=== PATIENT | female | born 1945 | race Caucasian/White ===

== ENCOUNTER → 2016-11-11 | Outpatient (CLI) | payer MEDICARE ==
[~2016-11-11] MED LIST: CALCIUM1 CAP PO; CAPTOPRIL50 MG PO; DICYCLOMINE HCL10 MG PO; IBUPROFEN IB200 MG PO; K-DUR 2020 MEQ PO; METOPROLOL SR25 MG PO; MIRTAZAPINE7.5 MG PO; NORCO 325 MG-51 TAB PO; PRILOSEC20 MG PO; TAMOXIFEN CITRA10 MG PO; VITAMIN D400 I1 PO; XANAX0.25 MG PO; ZOCOR20 MG PO; ZOCOR40 MG PO; ZOLOFT25 MG PO
== END | disposition home or self-care (01) ==
LOC: US 14:59
DX: M79.602 Pain in left arm (principal)

== ENCOUNTER → 2017-10-31 | Outpatient (CLI) | payer MEDICARE | END | disposition home or self-care (01) | LOC: CT 03:56 | DX: J44.9 Chronic obstructive pulmonary disease, unspecified (principal); I89.0 Lymphedema, not elsewhere classified; E78.00 Pure hypercholesterolemia, unspecified; D50.8 Other iron deficiency anemias; E55.9 Vitamin D deficiency, unspecified; R79.89 Other specified abnormal findings of blood chemistry; Z85.3 Personal history of malignant neoplasm of breast ==

== ENCOUNTER 2017-12-10 17:41 | Inpatient (IN) | payer MEDICARE ==
[~2017-12-10] VITALS: Ht 165.1 cm; Wt 60.4 kg
[2017-12-10 17:41] VITALS: BP 115/64
[2017-12-10 22:55] VITALS: BP 134/63
[2017-12-10 23:00] VITALS: BP 106/62
[2017-12-11] VITALS: BP 106/62
[2017-12-11 00:12] LABS: BASO % 0.2 % (0.0-1.0); EOS # 0.2 10*3/uL (0.0-0.4); EOS % 1.6 % (1.0-4.0); HEMATOCRIT 39.6 % (37.0-47.0); HEMOGLOBIN 12.7 g/dl (12.0-16.0); LYMPH # 1.7 10*3/uL (1.3-4.4); LYMPH % 13.9 % (27.0-41.0); MEAN CELL VOLUME 95.4 fl (81.0-99.0); MEAN CORPUSCULAR HGB 30.6 pg (27.0-31.0); MEAN CORPUSCULAR HGB CONC 32.1 g/dl (33.0-37.0); MEAN PLATELET VOLUME 9.9 fl (9.6-12.3); NEUT # 9.2 10*3/uL (2.3-7.9); NEUT % 75.9 % (47.0-73.0); PLATELET COUNT AUTOMATED 184 10*3/uL (130-400); RED BLOOD COUNT 4.15 10*6/uL (4.10-5.10); RED CELL DISTRI WIDTH 13.9 % (0-14.5); WHITE BLOOD COUNT 12.1 10*3/uL (4.8-10.8)
[2017-12-11 00:22] LABS: ACT PARTIAL THROMBO TIME 20.9 SECONDS (20.8-31.5)
[2017-12-11 00:27] LABS: ALBUMIN 2.9 gm/dl (3.1-4.5); CREATININE 1.45 mg/dL (0.55-1.02); POTASSIUM 4.8 mmol/L (3.5-5.1); TOTAL PROTEIN 6.3 gm/dL (6.4-8.2)
[2017-12-11 07:25] LABS: BASO % 0.3 % (0.0-1.0); EOS # 0.2 10*3/uL (0.0-0.4); EOS % 1.9 % (1.0-4.0); HEMATOCRIT 38.9 % (37.0-47.0); HEMOGLOBIN 12.2 g/dl (12.0-16.0); LYMPH # 1.4 10*3/uL (1.3-4.4); LYMPH % 15.4 % (27.0-41.0); MEAN CELL VOLUME 96.5 fl (81.0-99.0); MEAN CORPUSCULAR HGB 30.3 pg (27.0-31.0); MEAN CORPUSCULAR HGB CONC 31.4 g/dl (33.0-37.0); MEAN PLATELET VOLUME 10.4 fl (9.6-12.3); MONO # 0.7 10*3/uL (0.1-1.0); MONO % 7.8 % (3.0-9.0); NEUT # 6.7 10*3/uL (2.3-7.9); NEUT % 74.2 % (47.0-73.0); PLATELET COUNT AUTOMATED 188 10*3/uL (130-400); RED BLOOD COUNT 4.03 10*6/uL (4.10-5.10); RED CELL DISTRI WIDTH 13.9 % (0-14.5); WHITE BLOOD COUNT 9.1 10*3/uL (4.8-10.8)
[2017-12-11 07:48] LABS: ALBUMIN 2.9 gm/dl (3.1-4.5); CREATININE 1.42 mg/dL (0.55-1.02); PHOSPHOROUS 3.2 mg/dL (2.5-4.9); POTASSIUM 4.5 mmol/L (3.5-5.1); TOTAL PROTEIN 5.9 gm/dL (6.4-8.2)
[2017-12-11 07:53] LABS: THYROID STIM HORMONE (HS) 1.02 uIU/ml (0.358-4.75)
[2017-12-11 07:59] LABS: ACT PARTIAL THROMBO TIME 21.4 SECONDS (20.8-31.5)
[2017-12-11 08:00] VITALS: BP 152/59
[2017-12-11 08:32] LABS: VITAMIN D, 25-HYDROXY 31.6 ng/mL (30-100)
[2017-12-11 12:00] VITALS: BP 143/64
[2017-12-11] MEDS ORDERED: PAXIL20 M1 PO (12:11)
[2017-12-11] MEDS ORDERED: SYMB160 INH (12:12)
[2017-12-11] MEDS ORDERED: LASIX20 MG PO (12:12)
[2017-12-11] MEDS ORDERED: POTASSIUM CHLOR8 ME1 PO (12:12)
[2017-12-11] MEDS ORDERED: TAMOXIFEN CITRA PO (12:13)
[2017-12-11] MEDS ORDERED: LOPRESSOR25 MG PO (12:14)
[2017-12-11 16:00] VITALS: BP 116/61
[2017-12-11 20:00] VITALS: BP 127/60
[2017-12-12] VITALS: BP 130/80
[2017-12-12 06:46] LABS: BASO % 0.4 % (0.0-1.0); EOS # 0.2 10*3/uL (0.0-0.4); EOS % 2.6 % (1.0-4.0); HEMATOCRIT 38.3 % (37.0-47.0); HEMOGLOBIN 11.7 g/dl (12.0-16.0); LYMPH # 1.4 10*3/uL (1.3-4.4); LYMPH % 16.2 % (27.0-41.0); MEAN CELL VOLUME 97.7 fl (81.0-99.0); MEAN CORPUSCULAR HGB 29.8 pg (27.0-31.0); MEAN CORPUSCULAR HGB CONC 30.5 g/dl (33.0-37.0); MEAN PLATELET VOLUME 10.5 fl (9.6-12.3); MONO # 0.8 10*3/uL (0.1-1.0); MONO % 9.2 % (3.0-9.0); NEUT % 71.2 % (47.0-73.0); PLATELET COUNT AUTOMATED 159 10*3/uL (130-400); RED BLOOD COUNT 3.92 10*6/uL (4.10-5.10); WHITE BLOOD COUNT 8.4 10*3/uL (4.8-10.8)
[2017-12-12 06:57] LABS: CREATININE 1.46 mg/dL (0.55-1.02); POTASSIUM 4.7 mmol/L (3.5-5.1)
[2017-12-12 08:00] VITALS: BP 145/70
[2017-12-12] MEDS ORDERED: PRILOSEC20 M1 PO (12:06)
[2017-12-12 13:46] VITALS: BP 139/78
[2017-12-12 18:00] VITALS: BP 131/63
[2017-12-12 20:00] VITALS: BP 116/65
[2017-12-13] VITALS: BP 106/54
[2017-12-13 06:50] LABS: BASO % 0.1 % (0.0-1.0); EOS # 0.2 10*3/uL (0.0-0.4); EOS % 2.5 % (1.0-4.0); HEMATOCRIT 37.6 % (37.0-47.0); HEMOGLOBIN 11.6 g/dl (12.0-16.0); LYMPH # 0.8 10*3/uL (1.3-4.4); LYMPH % 9.5 % (27.0-41.0); MEAN CELL VOLUME 98.9 fl (81.0-99.0); MEAN CORPUSCULAR HGB 30.5 pg (27.0-31.0); MEAN CORPUSCULAR HGB CONC 30.9 g/dl (33.0-37.0); MEAN PLATELET VOLUME 10.7 fl (9.6-12.3); MONO # 0.7 10*3/uL (0.1-1.0); MONO % 7.6 % (3.0-9.0); NEUT % 79.8 % (47.0-73.0); PLATELET COUNT AUTOMATED 153 10*3/uL (130-400); RED CELL DISTRI WIDTH 13.8 % (0-14.5); WHITE BLOOD COUNT 8.8 10*3/uL (4.8-10.8)
[2017-12-13 07:26] LABS: CREATININE 1.32 mg/dL (0.55-1.02); POTASSIUM 4.4 mmol/L (3.5-5.1)
[2017-12-13 09:00] VITALS: BP 121/70
[2017-12-13 12:00] VITALS: BP 132/63
[2017-12-13 16:23] VITALS: BP 137/82
== END 2017-12-13 16:49 | disposition other institution (70) | DRG 536 ==
LOC: ED 17:41 → 5E 21:27 → EDHOLD 21:27 → 5E 21:48
PROVIDERS: Family Medicine; Internal Medicine; Internal Medicine Hospice and Palliative Medicine; Physician Assistant
DX: S32.454A Nondisplaced transverse fracture of right acetabulum, initial encounter for closed fracture (principal); E44.0 Moderate protein-calorie malnutrition; S32.591A Other specified fracture of right pubis, initial encounter for closed fracture; J43.9 Emphysema, unspecified; E78.00 Pure hypercholesterolemia, unspecified; K21.9 Gastro-esophageal reflux disease without esophagitis; M51.37 Other intervertebral disc degeneration, lumbosacral region; M81.0 Age-related osteoporosis without current pathological fracture; I25.10 Atherosclerotic heart disease of native coronary artery without angina pectoris; I89.0 Lymphedema, not elsewhere classified; I10 Essential (primary) hypertension; E55.9 Vitamin D deficiency, unspecified; W01.0XXA Fall on same level from slipping, tripping and stumbling without subsequent striking against object, initial encounter; F32.9 Major depressive disorder, single episode, unspecified; R73.9 Hyperglycemia, unspecified; Z95.828 Presence of other vascular implants and grafts; Z85.3 Personal history of malignant neoplasm of breast; Z91.041 Radiographic dye allergy status; Z79.899 Other long term (current) drug therapy; Z98.51 Tubal ligation status; Z90.12 Acquired absence of left breast and nipple; Z90.710 Acquired absence of both cervix and uterus; Z95.818 Presence of other cardiac implants and grafts; Z83.3 Family history of diabetes mellitus; Z83.6 Family history of other diseases of the respiratory system; Z80.1 Family history of malignant neoplasm of trachea, bronchus and lung; Y93.89 Activity, other specified; Y92.89 Other specified places as the place of occurrence of the external cause; Y99.8 Other external cause status

== ENCOUNTER → 2017-12-26 | Outpatient (CLI) | payer MEDICARE ==
[~2017-12-26] MED LIST changes: +LASIX20 MG PO; +LOPRESSOR25 MG PO; +PAXIL20 M1 PO; +POTASSIUM CHLOR8 ME1 PO; +PRILOSEC20 M1 PO; +SYMB160 INH; +TAMOXIFEN CITRA PO
== END | disposition home or self-care (01) ==
LOC: ORTHO 01:37
DX: Z47.89 Encounter for other orthopedic aftercare (principal); S32.491D Other specified fracture of right acetabulum, subsequent encounter for fracture with routine healing; M54.5 Low back pain; G89.29 Other chronic pain; X58.XXXD Exposure to other specified factors, subsequent encounter

== ENCOUNTER → 2018-01-21 | Outpatient (CLI) | payer MEDICARE ==
[~2018-01-21] MED LIST changes: +CALCIUM PO; +CEFEPIME2 GM IJ; +COLACE100 MG PO; +DUONEB 3 MG/3 ML3 M1 INH; +HEP-LOCK F100 UNIT/1 IV; +IMODIUM A-D2 M2 PO; +NYSTOP60 GM T; +REQUIP1 M1 PO; +RESOURCE 2.0 2237 ML PO; +TYLENOL325 M1 PO; +ZOFRAN4 MG PO
== END | disposition home or self-care (01) ==
LOC: ORTHO 02:51
DX: Z47.89 Encounter for other orthopedic aftercare (principal); M16.11 Unilateral primary osteoarthritis, right hip; S32.501D Unspecified fracture of right pubis, subsequent encounter for fracture with routine healing; X58.XXXD Exposure to other specified factors, subsequent encounter

== ENCOUNTER → 2018-01-23 | Outpatient (CLI) | payer MEDICARE ==
--- NOTE | ~2018-01-23 | SLPPN ---
[place], [place] BUSINESS PARTNER PROGRESS NOTE NAME: CHRIS RAMEY UNIT #: [id number] ROOM: DOCTOR: CLAUDIA RONQUILLO MD,CONSUELO Speech Language Pathology Treatment Note Page 1 1 of Patient Name: CHRIS RAMEY Date: 01/23/2018 04:11 PM : 1945 SOC Date: 01/23/2018 [facility]: [facility] Provider #: [id number] Treating Clinician: NIKOLAY Whitmore-BUSINESS PARTNER Referring Physician: CONSUELO RONQUILLO Onset Date Description Code Primary Diagnosis: 01/23/2018 A0000 NO DIAGNOSIS SENT TO THE [facility] Time In: 12:30 PM Time Out: 01:30 PM BUSINESS PARTNER Interventions and CPT Codes Consisted of: CPT Code Modifiers Minutes Units MOTION FLUOROSCOPY/SWALLOW 04521 60 1 Total Minutes: 60 Total Timed Minutes: 0 Total Untimed Minutes: 60 Total Units: 1 Total Timed Units: 0 Total Untimed Units: 1 01/23/2018 4:13:27 PM NIKOLAY Whitmore-BUSINESS PARTNER Date/Time State License #: [id number] CM:KALPANA [id number] IS THER[facility]Y [facility]
--- NOTE | ~2018-01-23 | SLPIE ---
[place], [place] DRESSAGE INSTRUCTOR INITIAL EVALUATION NAME: CHRIS RAMEY UNIT #: [id number] ROOM: DOCTOR: CONSUELO KANG FACP, MD Speech Language Pathology Initial Evaluation Page 1 1 of Patient Name: CHRIS RAMEY Date: 01/23/2018 04:10 PM : 1945 SOC Date: 01/23/2018 Provider: [facility] Provider #: [id number] Treating Clinician: NIKOLAY Whitmore-ANTONIA Referring Physician: CONSUELO RONQUILLO Patient Information Address: [address] [place] [address] Physician: CONSUELO RONQUILLO Physician #: City, State, Zip: [place], [place] [address] Occupation: Unknown # of Approved Visits: 0 Gender: Female 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 Please see VCV for details. Rehabilitation Information / History Clinical Findings Functional Goals Functional Limitation Reporting Swallowing G8996 - Swallowing functional limitation, current status at therapy episode outset and at reporting intervals Current Status: CI - At least 1 percent but less than 20 percent impaired, limited or restricted G8997 - Swallowing functional limitation, projected goal status, at therapy episode outset, at reporting intervals, and at discharge or to end reporting Goal Status: CI - At least 1 percent but less than 20 percent impaired, limited or restricted G8998 - Swallowing functional limitation, discharge status, at discharge from therapy or to end reporting Discharge Status: CI - At least 1 percent but less than 20 percent impaired, limited or restricted 01/23/2018 4:11:15 PM MATT Whitmore Date/Time [place], [place] DRESSAGE INSTRUCTOR INITIAL EVALUATION NAME: CHRIS RAMEY UNIT #: [id number] ROOM: DOCTOR: CONSUELO KANG FACP, MD [facility] License #: [id number] CM:NILO 12 12 IS THERAPY [facility]
--- NOTE | ~2018-01-23 | SLPPOC ---
[place], [place] TERRAZZO GRINDER PLAN OF CARE NAME: CHRIS RAMEY UNIT #: [id number] ROOM: DOCTOR: CONSUELO KANG FACP, MD Speech Language Pathology Plan of Care Page 1 1 (Initial Evaluation) of Patient Name: CHRIS RAMEY Date: 01/23/2018 04:10 PM : 1945 SOC Date: 01/23/2018 Provider: [facility] Provider #: [id number] Treating Clinician: NIKOLAY Whitmore-TERRAZZO GRINDER Referring Physician: CONSUELO RONQUILLO Medicare #: 1 [id number] Visits From SOC: Onset Date Description Code Primary Diagnosis: 01/23/2018 A0000 NO DIAGNOSIS SENT TO THE [facility] Subjective Comments: Initial evaluation created to initiate the electronic medical record. Please see Front Row for details. Initial Level Goals Functional Limitation Reporting Swallowing G8996 - Swallowing functional limitation, current status at therapy episode outset and at reporting intervals Current Status: CI - At least 1 percent but less than 20 percent impaired, limited or restricted G8997 - Swallowing functional limitation, projected goal status, at therapy episode outset, at reporting intervals, and at discharge or to end reporting Goal Status: CI - At least 1 percent but less than 20 percent impaired, limited or restricted G8998 - Swallowing functional limitation, discharge status, at discharge from therapy or to end reporting Discharge Status: CI - At least 1 percent but less than 20 percent impaired, limited or restricted 01/23/2018 4:11:15 PM CONSUELO RONQUILLO Date/Time MATT Whitmore Date I certify the need for these services furnished under this plan of treatment while under my care. State License #: [id number] CM:SLPPO [id number] IS THERAPY [facility]
--- NOTE | ~2018-01-23 | PROC NOTE ---
[place], [place] PROCEDURE NOTE NAME: CHRIS RAMEY UNIT #: [id number] ROOM: DOCTOR: CLEMENTE LUNDY BIRTHDATE: [birth year] DOS: 01/23/2018 MODIFIED BARIUM SWALLOW ORDERING PHYSICIAN: Dr. Ellis. RADIOLOGIST: Dr. Lockwood. BACKGROUND INFORMATION: The patient is a 72-year-old female who was seen for modified barium swallow. This test was ordered to view the anatomy and physiology of the swallowing mechanism. This patient has been experiencing globus with meals, causing her to spit up food toward the end of the meal. Medical history is significant for GERD, history of breast cancer and malnutrition. She reported suffering a recent hip injury due to a fall at home and has been in a rehab facility. She is receiving a mechanical soft diet with chopped meats and thin liquids. She was alert, able to provide case history information and follow all commands during today's assessment. Oral peripheral examination revealed presence of upper denture, which patient reported as ill-fitting. Lingual, labial and buccal skills were within normal limits in terms of strength, range of motion and coordination. The patient was able to volitionally cough and swallow. METHODS AND MATERIALS USED FOR THE EXAM: The patient was positioned in the lateral plane and the exam was viewed under fluoroscopy. The patient was presented with a variety of consistencies to assess swallowing skills including applesauce mixed with barium presented in half teaspoon amounts, barium-coated cookie and bread taken in bite size pieces and thin liquid barium taken by cup. ORAL PHASE: The patient achieved adequate labial seal around cup and spoon with no anterior loss. Bolus formation and transit were adequate. Mastication of barium coated bread was difficult. Piecemeal swallow with this consistency was observed and the patient finally stated that she could not fully chew it and asked to spit it out. Tongue to palate contact was adequate with all consistencies. Tongue retraction was adequate with all consistencies. Velar functioning was within normal limits with no nasal regurgitation. PHARYNGEAL PHASE: Unremarkable. ESOPHAGEAL PHASE: This phase of the swallow was not formally assessed during this exam. IMPRESSIONS AND RECOMMENDATIONS: Based upon assessment results, this patient exhibited swallowing skills that are essentially within functional limits. Some difficulty masticating barium coated bread was observed. This could have been due to her ill-fitting upper denture and/or the dry gummy consistency of the bread. It is recommended the patient remain on present diet and follow safe swallow precautions such as small bites and sips, chewing thoroughly alternating liquids and solids and moistening foods as appropriate to make them easier to chew and swallow. The patient verbalized understanding of information provided. The patient's spouse was also educated and a written copy of today's results [place], [place] PROCEDURE NOTE NAME: CHRIS RAMEY UNIT #: [id number] ROOM: DOCTOR: CLEMENTE LUNDY BIRTHDATE: [birth year] were provided to senior care staff for their education as well. Thank you very much for this referral. Should you have any questions regarding this patient, please contact the speech pathologist at [phone]. CLEMENTE LUNDY CM:PROCNOTE:PROCEDURE NOTE [id number] CLEMENTE LUNDY
== END | disposition home or self-care (01) ==
LOC: RAD 12:25 → RAD/SH 12:25
DX: R13.10 Dysphagia, unspecified (principal)

== ENCOUNTER 2018-02-03 11:50 | Inpatient (IN) | payer MEDICARE ==
[~2018-02-03] VITALS: Ht 147.3 cm; Wt 58.3 kg
[2018-02-03] VITALS (8 sets, daily range): BP systolic 110–124; BP diastolic 48–78
--- NOTE | ~2018-02-03 | PR ---
[place], [place] PROGRESS NOTE NAME: CHRIS RAMEY UNIT #: [id number] ROOM: [facility] DOCTOR: LENNIE ELIAS MD BIRTHDATE: [birth year] DOS: 02/06/2018 SUBJECTIVE: She was noted comfortable at this time without any acute distress. She has not reported symptoms of chest pain or cough. Shortness breath was noted stable at the present time. noted edema of the upper and lower extremity. There were symptoms of hemoptysis. OBJECTIVE: VITAL SIGNS: For the patient which are recorded showed the blood pressure was recorded at 111/60, respiratory rate 16, heart rate 108, blood pressure 100.3, sinus tachycardia noted with PVCs on the court recording monitor. HEENT: Showed no acute change. NECK: Supple. CARDIOVASCULAR: S1, S2 audible. LUNGS: Moderate decreased breath sounds were noted in the lungs bilaterally. ABDOMEN: Soft, nontender. EXTREMITIES: Shows edema. LABORATORY DATA: CBC today: WBC count was recorded as 9.8, hemoglobin 7.7, hematocrit 25.6, platelet count was normal. CMP this morning, BUN 29, creatinine 1.72. Glucose 103. IMPRESSION: 1. The patient with resolving acute kidney injury gradually with peripheral edema still noted. 2. The patient with anemia was also noted. 3. Acute hypoxic respiratory failure, chronic hypercapnia. 4. Acute bacterial pneumonia. PLAN OF MANAGEMENT: No changes in the plan of care at this time. Continue the patient's current plan of care as in progress. Usual care, other supportive plan of management and therapies. The patient was planned for blood transfusion today. No other change in the treatment, pulmonary standpoint, will be necessary. Obtain a chest x-ray of the patient in the morning to reassess the progression of the current pneumonia in the left lower lobe. [place], [place] PROGRESS NOTE NAME: CHRIS RAMEY UNIT #: [id number] ROOM: [facility] DOCTOR: LENNIE ELIAS MD BIRTHDATE: [birth year] LENNIE MCDUFFIE MD CM:PNTRANS [id number] LENNIE ARNDT MD 02/06/181951 interface
--- NOTE | ~2018-02-03 | EKG ---
[place], [place] ELECTROCARDIOGRAM REPORT NAME: CHRIS RAMEY UNIT #: [id number] ROOM: [facility] DOCTOR: RETA ARNDT MD,LENNIE BIRTHDATE: [birth year] DOS: 02/03/2018 Electrocardiogram was done on 02/03/2018 at 12:53 p.m. 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 LENNIE MCDUFFIE MD CM:EKGRPT:ELECTROCARDIOGRAM REPORT [id number] LENNIE ARNDT MD
--- NOTE | ~2018-02-03 | PR ---
[place], [place] PROGRESS NOTE NAME: [id number] UNIT #: [id number] ROOM: [facility] DOCTOR: DEE HARLEY,NOVEMBER BIRTHDATE: [birth year] DOS: 02/07/2018 SUBJECTIVE: The patient is a 72-year-old female who is being followed for pneumonia. She was admitted from an ECF. She is currently on cefepime. She had a CT of the chest on 02/03/2018 that showed right upper lobe infiltrate. She has not had a sputum culture able to be obtained. Blood cultures were all sterile. Urine culture is sterile. MRSA screen is negative. She is having significant respiratory distress. She ran a fever overnight of 102.7 about 4:00 a.m. that has resolved and not recurred since. She is hypotensive, having respiratory distress. She has had vomiting this morning; therefore, the BiPAP is being held. She is refusing intubation, though she is a full code. No diarrhea. Has had mushy stools. She had an EGD that showed gastritis. No rashes. Significant upper body swelling. LABORATORY DATA: WBC is 11.3, platelets 199. BUN 25, creatinine 1.4, AST 37, ALT 22, albumin 2.5. Cultures as reviewed above. PHYSICAL EXAMINATION: VITAL SIGNS: Temperature 97.8, pulse 142, respirations 28, BP 98/60. GENERAL: A 72-year-old female in moderate respiratory distress, on O2 via mask. HEENT: Normocephalic, tacky mucous membranes. Face and neck appeared to be puffy. Right neck with triple lumen catheter in place, ecchymosis across the anterior neck. LUNGS: With crackles bilaterally. Respirations labored. HEART: Regular rhythm, tachycardic, unable to appreciate any murmurs, though difficult to auscultate. ABDOMEN: Soft, nondistended, positive bowel sounds. EXTREMITIES: Mild lower extremity edema plus bilateral upper extremity edema, +3 edema with weeping, especially of the left arm. Upper extremities are ecchymotic. No signs of cellulitis. SKIN: Otherwise, warm, dry, free of rashes. Review of systems rather limited given the patient's distress, minimal verbal response. ASSESSMENT: Healthcare-associated pneumonia. PLAN: She is currently on cefepime, which is to be continued. She is awaiting transfer to a tertiary care center, which is to be happening imminently. JAMES PRICE CNP [place], [place] PROGRESS NOTE NAME: CHRIS RAMEY UNIT #: [id number] ROOM: [facility] DOCTOR: DEE HARLEY,NOVEMBER BIRTHDATE: [birth year] ART AVENDANO MD CM:PNTRANS [id number] JAMES PRICE CNP 02/08/18 1210 interface
--- NOTE | ~2018-02-03 | CON ---
[place], [place] REPORT OF CONSULTATION NAME: CHRIS RAMEY UNIT #: [id number] ROOM: [facility] DOCTOR: VICKIE GROSSMAN MD BIRTHDATE: [birth year] DOS: 02/06/2018 NEPHROLOGY CONSULTATION REASON FOR CONSULTATION: Acute kidney injury. REQUESTING PHYSICIAN: Dr. Contreras. HISTORY OF PRESENT ILLNESS: The patient is a pleasant 72-year-old woman with the unfortunate history of congestive heart failure, history of breast cancer, status post mastectomy and chronic left arm lymphedema, history of a MediPort placement in the right that was noted to have some CKD. She was following with Dr. Owusu of our office in the past, was due to get an ultrasound later this month. Her baseline creatinine has been as low as 1-1.1 going back few years and last year, cut down to as low as 1.2, but has generally been in the mid ones beside that. She does have a tendency to have chronic venous insufficiency in the lower extremities as well as upper extremities. Tend to be edematous. Her daughter reports that her lower extremities were significantly edematous by the time she was admitted to the hospital, which has improved. She was found to have a large burden of DVT in her left lower extremity, initially placed on heparin and eventually switched over to Xarelto. However, her hemoglobin began to fall from the 11s to the 9s and this morning down to 7s. Xarelto was held and GI was consulted and she is in the preoperative area for possible EGD this morning. I was notified yesterday of the consult. She had low-grade temperatures. She had blood pressures in the systolics of 90s, and she was tachycardic. I recommended that we do at least a bolus of albumin given the third spacing that the nurse was describing to me. Gave her 500 mL of 5% albumin and checked urine chemistries which indicated a prerenal process as expected. She was hypernatremic, was started on normal saline yesterday as well. Her creatinine is improving from 2.2-2.3 ranging down to the 1.9 range. Given the current hemodynamics continue to show tachycardia and low-grade temperatures and tachypnea with more stable blood pressures at least, no pressor requirements have been required so far. She is being treated for possible pneumonia as well as the respiratory failure that she presented with. A CT of the chest was done, showed little effusions, but questionable scattered pneumonia, which I am suspicious now maybe clots. No contrast was given because of her renal insufficiency on arrival as well. At this point, 1 packed red blood cell unit was given because of the blood loss and the unstable nature of the patient. There is no reported history of hypercoagulable state, other than a history of cancer that she was previously treated for. She does not report any significant anorexia, nausea, vomiting, but she does have poor p.o. intake according to family. She has aches and pains all over. She is not able to characterize these or specifically localize any specific ones that are hurting at this time. She is noted to have some seeping of her upper and lower extremities, mostly right upper extremity to me today. Her left upper extremity is wrapped in a compression sleeve as is her lower extremities with SCARLETT stockings. SCD is in place on the right lower extremity, but not on the left because of the clot. REVIEW OF SYSTEMS: As per the HPI, otherwise all systems attempted and [place], [place] REPORT OF CONSULTATION NAME: CHRIS RAMEY UNIT #: [id number] ROOM: [facility] DOCTOR: VICKIE GROSSMAN MD BIRTHDATE: [birth year] negative. PAST MEDICAL HISTORY, FAMILY HISTORY AND SOCIAL HISTORY: All reviewed and unchanged from the admitting H and P. PHYSICAL EXAMINATION: VITAL SIGNS: Blood pressure is 114/68, respiratory rate 28, pulse 112, temperature 100.6%. GENERAL: Chronically ill, elderly, age appropriate woman lying in bed with the head of the bed raised. HEENT: Oral mucous membranes are dry, dry chapped lips are noted. Extraocular muscles are intact. Sclerae are anicteric. Oropharynx is otherwise without thrush or ulcers. Hearing is grossly intact. External ears and nose are intact. NECK: I cannot appreciate JVD. She has a thick neck. EXTREMITIES: She has a MediPort on the right, compression sleeve on her left with some lymphedema noted. She also has some edema of the lower extremities, but not as much as the third spacing noted on the upper extremities. Very poor psychomotor slowing and deconditioning grossly is noted. She had a fall and was just recently admitted and sent to residential about 8 weeks ago. LUNGS: Decreased breath sounds, scattered rhonchi. No significant wheeze. CARDIOVASCULAR: Tachycardic rate. No audible rub, no lift or heave. ABDOMEN: Obese, soft, nontender, without rebound, guarding or hepatosplenomegaly that I can appreciate. SKIN: Without diffuse rashes. Scattered ecchymoses are noted, some seeping as mentioned above. She has a right IJ tunneled triple lumen catheter as well. NEUROLOGIC: Gross motor function is deconditioned, but intact in all 4 extremities. Gross sensation is intact as well. Insight and judgment, relatively preserved. Remote memory is intact. LABORATORIES AND DIAGNOSTICS: All reviewed in detail. Currently, the computer is down, cannot get back into it, but they were all reviewed at the ICU nurses station and with the ICU nurse. ASSESSMENT AND PLAN: 1. Acute kidney injury. This is likely prerenal in nature, especially given urine indices as well as what appears to be third spacing and likely intravascular volume contraction, gentle maintenance fluids are acceptable. Would agree with what she is getting right now. I gave her 500 mL of 5% albumin yesterday because of the low blood pressure and third spacing and low albumin in the serum chemistries. 2. Hypernatremia. This is worsening with saline. Agree with discontinuation of this and change to half normal saline concentration. 3. Pulmonary embolism/deep venous thrombosis. Pulmonary embolism is possible, but deep venous thrombosis is confirmed, would recommend empiric treatment with anticoagulation as the next problem will allow, probably recommend heparin with Coumadin given her renal insufficiency and fluctuating GFR and the tenuousness of her blood counts, so that an antidote can be given if necessary for signs and symptoms of acute bleeding that is severe. 4. Anemia of acute blood loss. Hemoglobin started in the 11s, then to 9s, now [place], [place] REPORT OF CONSULTATION NAME: CHRIS RAMEY UNIT #: [id number] ROOM: [facility] DOCTOR: VICKIE GROSSMAN MD BIRTHDATE: [birth year] the 7's. Suspect acute blood loss from the gut, the question is where, GI following at this point, we will follow up on the recommendations, transfuse per primary service. 5. Medications should be dosed for her current GFR. I suspect her baseline does range around 1.1-1.2 if she can get there which would still be about chronic kidney disease 3. Further workup can be done at that point. For now, we will continue to follow her progress. VICKIE GROSSMAN MD CM:CONSTR:REPORT OF CONSULTATION 1507 02/07/18 0525 interface
--- NOTE | ~2018-02-03 | CON ---
[place], [place] REPORT OF CONSULTATION NAME: CHRIS RAMEY UNIT #: [id number] ROOM: [facility] DOCTOR: BELIA ADAMSON MD BIRTHDATE: [birth year] DOS: 02/06/2018 GASTROENDOSCOPY REPORT HISTORY OF PRESENT ILLNESS: A 72-year-old patient who presented with initial fracture hip and also shortness of breath and oxygen dependency. She has had sudden drop in H and H and I had been asked for assessment of the above. Past and recent CBC at the time of admission was 99 and 33 with a platelet count of 281,000. Comprehensive metabolic panel: BUN and creatinine 25 and 1.7, GFR is 35. Electrolytes balanced. Liver function tests normal. Lactic acid 1.9, magnesium 1.9. INR was 1.1. Comprehensive metabolic panel reassessed and labs reevaluated. Her BNP is 4400+. Arterial blood gases periodically reassessed, pH was 7.36 with pCO2 of 54 and pO2 of 69 Hypoxemic. CBC was redone. White blood cell was 19, sepsis has been addressed. Chest x-ray has been taken. COPD pattern is documented. A Doppler of lower extremities was done evidence for acute DVT within the left common femoral, superficial and femoral, popliteal and peroneal vein, they are all identified on the left side. Recent drop in H and H to 7 and 24 has been concerned. PAST MEDICAL HISTORY: Coronary artery disease, CHF, chronic renal disease, compression fracture, chronic L1, L2, T12 degenerative joint disease, GERD, protein calorie malnutrition, obesity. PAST SURGICAL HISTORY: Hysterectomy, mastectomy, tubal ligation, cerebral aneurysm repair. SOCIAL HISTORY: Passive smoker. Nonalcohol consumer. FAMILY HISTORY: Noncontributory. ALLERGIES: IVP DYE AND IODINE. MEDICATIONS: Reviewed. REVIEW OF SYSTEMS: HEENT: Denies double vision, blurred vision. RESPIRATORY: Admits some shortness of breath. CARDIOVASCULAR: Denies chest pain. DIGESTIVE SYSTEM: No hematemesis, no hematochezia, GI bleed. PHYSICAL EXAMINATION: VITAL SIGNS: Stable compromised with COPD. HEENT: Head normocephalic, nontraumatic. Mouth and buccal mucosa benign. NECK: There is a subcutaneous hematoma around the neck secondary to central line placement. LUNGS: COPD, decreased air entry and exchange. HEART: Normal sinus rhythm, no gallop, no murmur. ABDOMEN: Obese, large size. No hepato-organomegaly. Bowel sounds present. EXTREMITIES: No cyanosis, no pedal edema. [place], [place] REPORT OF CONSULTATION NAME: CHRIS RAMEY UNIT #: [id number] ROOM: [facility] DOCTOR: BELIA ADAMSON MD BIRTHDATE: [birth year] NEUROLOGIC: Fully alert, oriented to time, place, person. IMPRESSION: Sudden drop in H and H, ruling out upper gastrointestinal bleed. Other adjunctive diagnosis ruling out pneumonic infiltrate, hypoxemia, hypercapnia, COPD, hypertension, gastroesophageal reflux, hypercholesterolemia, depression, degenerative joint disease, all has congestive failure, respiratory insufficiency, all has been reviewed, DVTs are known need of heparin anticoagulation is known, yet concerned about GI bleed. We are going to do an urgent EGD on her. BELIA ADAMSON MD CM:CONSTR:REPORT OF CONSULTATION 1506 02/07/18 0214 interface
--- NOTE | ~2018-02-03 | PROC NOTE ---
[place], [place] PROCEDURE NOTE NAME: CHRIS RAMEY UNIT #: [id number] ROOM: [facility] DOCTOR: Edelmira Carrero BIRTHDATE: [birth year] DOS: 02/05/2018 MODIFIED BARIUM SWALLOW STUDY PHYSICIAN: Syed Anthony DO RADIOLOGIST: Dr. Lockwood. AGE: 72 years. BACKGROUND MEDICAL HISTORY: The patient is a long-term care resident who experienced a left hip fracture approximately 1-2 weeks ago and was admitted to this facility due to shortness of breath noted at the long-term care facility. The patient has been on a BiPAP and continues to demonstrate shortness of breath. The patient was assessed at this facility and was diagnosed with right upper lobe pneumonia, right lower lobe and left lower lobe pneumonia. At this time, she has a primary diagnosis of respiratory failure, CHF, pleural effusion, pneumonia and secondary diagnoses of CAD, hypertension, GERD, myocardial infarction, COPD and has a history of breast cancer. The patient is currently on a pureed diet at this facility and evaluation is being recommended to rule out aspiration. METHODS AND MATERIALS: The patient was lying on a gurney and was viewed in the lateral plane. She was given thin liquid and pureed and a soft solid all covered in liquid barosperse for viewing under fluoroscopy. ORAL PHASE: The patient completed an oral motor assessment which was adequate as the patient demonstrated adequate lingual range of motion, coordination and strength as well as labial range of motion, coordination and strength. At this time, the patient was able to demonstrate an adequate volitional swallow; however, her volitional cough was weak. The patient was given pureed consistency with adequate oral propulsion and clearance. However, with solids, the patient demonstrated delayed mastication with delayed oral transit times of 10 or more seconds. Piecemeal deglutition was noted with soft solid of banana and multiple swallows were elicited; however, the patient was unable to clear the oral cavity and pocketing under the tongue was noted. Bolus formation was poor with solids and tongue to palate contact was reduced as well as tongue to posterior pharyngeal wall was reduced as residue was noted in the oral cavity and posterior pharyngeal wall. No tongue pumping was noted and velar function was normal as no nasal regurgitation occurred during the assessment. PHARYNGEAL PHASE: This phase of swallow did not exhibit any penetration or aspiration at this time with any materials given; however, the patient is at a high risk of aspiration as material and stasis was noted after the swallow with solids. Piriform stasis was noted with solids. No vallecular stasis was noted before, during or after the swallow; however, residue did remain on the tongue base after the swallow and multiple swallows were elicited to clear oral cavity. Epiglottic function was adequate as no penetration or aspiration occurred. ESOPHAGEAL PHASE: This phase of swallow was not formally assessed; however, the [place], [place] PROCEDURE NOTE NAME: CHRIS RAMEY UNIT #: [id number] ROOM: [facility] DOCTOR: Edelmira Carrero BIRTHDATE: [birth year] patient did report reflux of materials after the swallow and this was noted during the assessment in the UES as residue was noted. IMPRESSION AND RECOMMENDATIONS: The patient demonstrates reduced hyolaryngeal excursion and laryngeal elevation at this time with solids; however, no penetration or aspiration occurred with thin liquids during the assessment. The patient was able to clear minimal amounts of residue when given a wash with pureed consistency; however, this was not an effective strategy to be used during meals. The patient demonstrates oral residue and pocketing of solids increased oral transit times at this time. The patient did demonstrate and was cued for multiple swallows of solids; however, she was unable to clear the residue completely. The patient reported reflux and this was noted on the exam as minimal amounts of material did come back up through the UES during the assessment. It is recommended that the patient receive a diet of pureed consistency with thin liquids at this time and speech therapy, will follow and administer a treatment plan as well as provide education to the patient and family regarding recommendations. If you have any questions or comments regarding this assessment, please contact the speech pathology department at [phone]. Thank you for this referral. Edelmira Carrero CM:PROCNOTE:PROCEDURE NOTE [id number] Edelmira Carrero
--- NOTE | ~2018-02-03 | PR ---
[place], [place] PROGRESS NOTE NAME: CHRIS RAMEY UNIT #: [id number] ROOM: [facility] DOCTOR: RETA ARNDT MD,LENNIE BIRTHDATE: [birth year] DOS: 02/07/2018 PULMONARY PROGRESS NOTE SUBJECTIVE: The patient was noted with somewhat fatigue and tired this morning. The oxygen supplementation was given with the Venturi mask. She has been noted with hypoxia this morning as the patient is using the BiPAP. She has been noted vomiting with questionable aspiration. The patient was continued on unfractionated therapeutic heparin for the medical management of deep vein thrombosis. She had now been noted with symptoms of chest congestion at the present time ____ cough. Shortness of breath was noted at rest. She did not report any symptoms of chest pain. Did not have any symptoms of hemoptysis. She was still noted with edema in the upper and lower extremities. After discussion with family members, the patient was planned for possible discharge to the [facility]. The patient was noted with elevation of temperature up to 102.7 degree Fahrenheit. Remains on the intravenous antibiotics. Further review of systems cannot be completed. OBJECTIVE: VITAL SIGNS: Blood pressure of 102.7 degree Fahrenheit to normal temperature, respiratory rate of 34-26, heart rate of 107 beats per minute, noted previously 142 beats per minute. The patient noted with blood pressure of 80/44-98/60. Pulse oxygen saturation on 3 liters nasal cannula 94% saturation. HEENT: Examination shows head was atraumatic. Eyes nonicterus. NECK: Supple with obesity. CARDIOVASCULAR: S1, S2 audible. LUNGS: The patient noted with [id number] decreased breath sounds bilaterally. ABDOMEN: Noted soft. Mild to moderate obesity, bowel sounds present. EXTREMITIES: With edema. SKIN: No acute lesions or rashes. MUSCULOSKELETAL: No deformities. CENTRAL NERVOUS SYSTEM: Somewhat fatigue and tiredness noted. LABORATORY DATA: INR today 1.3. The PTT was noted at 8 o'clock as 91. The urine culture was noted with no bacterial growths. Blood culture remains without any bacterial growth from 02/05/2018. Final results pending. CMP today, BUN 25, creatinine 1.41. Potassium 3.4. Calcium without correction ____ and albumin noted 2.9. AST was 37. Urine culture, no bacterial growth done on 02/05/2018. CBC of this morning, WBC count 11.3, hemoglobin 9.9, hematocrit 33.4, and platelet count 199,000. IMPRESSION: 1. The patient have been currently noted with acute respiratory failure. The patient with intermittent hypoxia. 2. Tachyarrhythmia, the patient with hypotension most likely resulted from the tachycardia. 3. The patient with acute pneumonia, treated with the antibiotics intravenously. All the cultures so far noted negative. Sputum culture was not done since the patient does not have any sputum expectoration. [place], [place] PROGRESS NOTE NAME: CHRIS RAMEY UNIT #: [id number] ROOM: [facility] DOCTOR: RETA ARNDT MD,LENNIE BIRTHDATE: [birth year] 4. Acute deep venous thrombosis of the left lower extremity, currently treated with heparin. 5. Overall debility with current ongoing medical illnesses. PLAN OF MANAGEMENT: The patient has been currently planned for transfer to [facility]. Discussion about the code status has been done with the patient's daughter. The patient does ____ shock and possible short term mechanical ventilation would be considered. In case of therapeutic, there was hope for survival as told to me by the patient's daughter. The patient was already seen by the Cardiology Services received digoxin and vasopressin. Digoxin given for the tachycardia and vasopressin for the hypotension management. Overall prognosis remains guarded. Other supportive therapy, plan of management, titrate oxygen supplementation 90% or greater. If the patient's oxygen saturation further deteriorate, the patient should be intubated rather than starting of the BiPAP because of the vomiting. Other supportive therapy, plan of management, and care plan. LENNIE MCDUFFIE MD CM:PNTRANS [phone] LENNIE ARNDT MD 02/08/18 0232 interface
--- NOTE | ~2018-02-03 | PR ---
[place], [place] PROGRESS NOTE NAME: CHRIS RAMEY UNIT #: [id number] ROOM: [facility] DOCTOR: BELIA ADAMSON MD BIRTHDATE: [birth year] DOS: 02/06/2018 SUBJECTIVE: A 72-year-old patient who has presented with GI bleed, status post endoscopy of upper GI tract, and was found to have a large duodenal ulcer with visible bleeding and the ulcer was necrotic. The patient was placed on Sandostatin drip, was placed on sucralfate slurry q.i.d. as well as alternated with Gaviscon as well as Protonix 40 mg IV b.i.d. was undertaken. She was kept in the ICU and she was intubated for respiratory insufficiency and subsequently extubated. She remains lethargic and encephalopathic. Her latest H and H has been 9.7 and 31 after transfusion and relatively stable. The H and H on 02/06/2018 was 7.3 and 24. Urine culture was negative. PAST MEDICAL HISTORY: Anxiety, DVT, pleural effusion, congestive heart failure, coronary artery disease, renal insufficiency, compression fracture, COPD, all are known. REVIEW OF SYSTEMS: HEENT: Benign, edentulous, no thrush, neck supple. RESPIRATORY: Positive rhonchi. CARDIOVASCULAR: Normal sinus rhythm. ABDOMEN: Soft, bowel sounds positive. EXTREMITIES: Trace edema. NEURO: Lethargic. PLAN AND DISCUSSION: Will continue to monitor H and H and continue cardiac monitoring. BELIA ADAMSON MD CM:PNTRANS [phone] BELIA ADAMSON MD 02/11/18 1032 interface
--- NOTE | ~2018-02-03 | CON ---
[place], [place] REPORT OF CONSULTATION NAME: CHRIS RAMEY UNIT #: [id number] ROOM: [facility] DOCTOR: DORIS BHATTI,BAO Grimes BIRTHDATE: [birth year] DOS: PALLIATIVE CONSULT NOTEE HISTORY OF PRESENT ILLNESS: The patient is a 72-year-old female with multiple medical issues, presently admitted in the ICU under care of Dr. Syed Anthony. Palliative consult was obtained to discuss the code status and the choice of therapy with the patient. The patient is alert and oriented and uncomfortable with shortness of breath and discomfort. The patient says that she does not want to discuss palliative care or her code status because she is very uncomfortable and feeling miserable. I will recommend that the patient's code status needs to be rediscussed with her at a later stage because she is reluctant to talk about the issues at present time. The patient's was not present with her in the room today. Apparently, the patient is in extremely poor health and she changed her code status to full code from a DNR comfort care before presenting to the Emergency Department. Thank you Dr. Anthony for asking me to see the patient. BAO GEORGE MD CM:CONSTR:REPORT OF CONSULTATION 1900 02/07/18 0612 interface
--- NOTE | ~2018-02-03 | PR ---
[place], [place] PROGRESS NOTE NAME: CHRIS RAMEY UNIT #: [id number] ROOM: [facility] DOCTOR: RETA ARNDT MD,LENNIE BIRTHDATE: [birth year] DOS: 02/05/2018 SUBJECTIVE: The patient was noted comfortable at this time without any acute distress. At this time, resting in the bed, was noted awake and alert. Mild cough noted and sputum expectoration. Shortness of breath noted decreased. Denies symptoms of chest pain or hemoptysis this morning. Use the BiPAP previously. Using oxygen supplementation nasal cannula this morning. Denies abdominal pain, nausea, vomiting. The patient is afebrile. REVIEW OF SYSTEMS: Review of systems was completed, otherwise noted as negative. OBJECTIVE: VITAL SIGNS: The vital signs which were recorded showed the temperature noted normal, respiratory rate of 19, heart rate 94, blood pressure 95/47-89/53. Pulse oxygen saturation on 3 liters nasal cannula 95% saturation with BiPAP 40% as 99% saturation. HEENT: Examination shows head was atraumatic. Eyes, nonicterus. NECK: Supple. CARDIOVASCULAR: S1, S2 is audible. LUNGS: The patient was noted without any crackles or rhonchi. ABDOMEN: Soft, nontender, obese. EXTREMITIES: Without any acute edema. MUSCULOSKELETAL: Without any acute deformities. Chronic senile kyphosis. SKIN: No lesions or rashes. CENTRAL NERVOUS SYSTEM: General weakness and fatigue. LABORATORY DATA: BMP this morning noted BUN 33, creatinine 2.08, glucose 104, CO2 34. CBC this morning was WBC count 11.9, hemoglobin 9.3, platelet count was normal. IMPRESSION: 1. The patient who has been currently noted with acute hypoxic respiratory failure with chronic hypercapnia. 2. The patient with acute pneumonia as well. 3. Tree-in-bud appearance, secondary to acute bacterial infection, chronic infection remains in consideration. 4. Acute deep venous thrombosis of the left lower extremity. The patient currently treated with Xarelto. 5. Recent hip fracture of the right side, which will be treated nonsurgically. PLAN OF MANAGEMENT: Continuation of the current therapy, plan of management of the patient at this time. Bronchodilators, oxygen supplementation, antibiotics, BiPAP use at nighttime. Other supportive therapy, plan of management and care plan. Usual care, other supportive plan of therapy and care. [place], [place] PROGRESS NOTE NAME: CHRIS RAMEY UNIT #: [id number] ROOM: [facility] DOCTOR: RETA ARNDT MD,LENNIE BIRTHDATE: [birth year] LENNIE MCDUFFIE MD CM:PNABBY [phone] LENNIE ARNDT MD 02/05/182116 interface
--- NOTE | ~2018-02-03 | CON ---
[place], [place] REPORT OF CONSULTATION [id number] UNIT #: [id number] ROOM: [facility] [place] DOCTOR: LENNIE ELIAS MD BIRTHDATE: [birth year] DOS: 02/04/2018 PULMONARY CONSULTATION, EVALUATION, AND MANAGEMENT CONSULTATION REQUESTED BY: Hospitalist service. REASON FOR CONSULTATION: Assessment of current respiratory failure. HISTORY OF PRESENT ILLNESS: This is a 72-year-old white female patient who has been known with past history of COPD with chronic hypoxic respiratory failure, has been recently admitted to the hospital as the patient fell down resulting in acute nondisplaced fracture of the right hip. The patient was kept in the hospital and discharged after 3 days to the [facility], where the patient was receiving rehabilitation, was noted in her usual state of health. She has been brought to the hospital, admitted to the hospital on 02/03/2018 as the patient was noted with increased shortness of breath. The patient's shortness breath has been noted significantly worsening with general weakness and fatigue, also developed coughing with purulent sputum expectoration. She denies symptoms of chest pain or wheezing. She was noted with general weakness and fatigue. The patient was getting rehabilitation, walking with assistance per daughter at the nursing facility. She has been assessed in the Emergency Room, also had a CT scan of the chest done, which shows evidence of multilobar pneumonia and diagnosis of acute left deep venous thrombosis was also established. She has been getting intravenous antibiotic. The patient also receiving the unfractionated therapeutic heparin and currently treated in the Intensive Care Unit. BiPAP was also used for this patient intermittently. REVIEW OF SYSTEMS: CONSTITUTIONAL: Fatigue and tiredness noted without symptoms of fever or chills. EYES: Denies any burning, redness, or tenderness. EARS, NOSE, THROAT SYMPTOMS: Denies sore throat, hoarseness, otalgia, postnasal drainage or epistaxis. CARDIOVASCULAR: Denies angina pain. Noted edema of the lower extremities without any pain. No palpitations. GASTROINTESTINAL: Denies dysphagia, nausea, vomiting, diarrhea, abdominal pain, hematemesis, melena, or hematochezia. SKIN: Denies abnormal lesions or rashes. GENITOURINARY SYMPTOMS: No dysuria, suprapubic pain, or hematuria. CENTRAL NERVOUS SYSTEM: General weakness and fatigue were reported without any focal neurologic deficit. Remaining systems were reviewed, they were noted all negative. ADDENDUM PAST MEDICAL HISTORY: 1. Chronic obstructive pulmonary disease. 2. Chronic hypoxic respiratory failure, use of oxygen 2 liter nasal cannula previously at nighttime, currently during the day. [place], [place] REPORT OF CONSULTATION NAME: CHRIS RAMEY UNIT #: [id number] ROOM: [facility] [place] DOCTOR: RETA ARNDT MD,[facility] BIRTHDATE: [birth year] 3. Congestive heart failure, diastolic dysfunction. 4. Chronic kidney disease, stage 3. 5. Coronary artery disease. 6. Severe debility. 7. Compression fracture of T12, L1, and L2. 8. History of degenerative arthritis as well. 9. Essential hypertension. 10. Gastroesophageal reflux. 11. Hypercholesterolemia. 12. Osteoporosis. 13. Recent right acetabular fracture after a fall at home. 14. Type 2 diabetes mellitus. 15. History of left breast cancer. PAST SURGICAL HISTORY: 1. Reported as cerebral aneurysm repair. 2. Cardiac catheterization, coronary stents insertion. 3. Complete hysterectomy. 4. Tubal ligation. 5. MediPort insertion for the peripheral venous access. 6. Left breast mastectomy for the management of the breast cancer. The surgery was done in 04/2012. SOCIAL HISTORY: The patient is currently a resident of skilled nursing, was living at home prior to the last admission and management in the long-term facility. She has been noted with history of tobacco use. The patient started this in the early teens up to 2 packs of cigarettes per day that was discontinued in 09/2016. FAMILY HISTORY: The patient's father at 60 years with complication of pulmonary embolism with a history of COPD. Mother at the age of 67 years of complications of lung cancer. MEDICATIONS: From admission was listed as use of Symbicort HFA inhaler, Lasix, DuoNeb, Lopressor, Nystatin, omeprazole, Zofran, Requip, simvastatin, tamoxifen, vitamin D, and other p.r.n. medications. The current medications administered was noted as use of DuoNeb, unfractionated therapeutic heparin, Levaquin, IV Zosyn, vancomycin, and others. DRUG ALLERGIES: NOTED ALLERGY TO IVP DYE. PHYSICAL EXAMINATION: GENERAL: A 72-year-old female who has been currently noted awake and alert, appeared to be ill looking patient and debilitated. Height of 4 feet 10 inches, weight 128 pounds, BMI 26. VITAL SIGNS: For the patient which are recorded showed the temperature noted T-max of 100.8 degree Fahrenheit, normal temperature, respiratory rate range between 18-34, heart rate 82-100, blood pressure 107/59-121/72. The pulse oxygen saturation recorded as 97% on nasal cannula. The patient on the BiPAP, 40% oxygen use with the BiPAP. [place], [place] REPORT OF CONSULTATION NAME: CHRIS RAMEY UNIT #: [id number] ROOM: [facility] [place] DOCTOR: RETA ARNDT MD,LENNIE BIRTHDATE: [birth year] HEENT: Examination shows head was atraumatic. Eyes nonicterus. NECK: Supple. Oral mucosa was moist. CARDIOVASCULAR SYSTEM: S1, S2 is audible. LUNGS: Noted generalized reduction in the breath sounds bilaterally. ABDOMEN: Soft, nontender. EXTREMITIES: The patient noted without any acute changes except edema of bilateral lower extremities. SKIN: Visible skin, no lesions or rashes. MUSCULOSKELETAL: With mild senile kyphosis. CENTRAL NERVOUS SYSTEM: General weakness and fatigue were noted. Further exam at this time, could not be performed. LABORATORY DATA: CMP that was done on 02/02/2018, BUN 25, creatinine 1.70, glucose 114. CO2 of 33. Lactic acid 1.9 on 02/03/2018. The PT/INR on 02/03/2018 was normal. PTT was normal on 02/03/2018 as well. CMP on 02/03/2018, BUN 24, creatinine 1.62. CO2 of 33. Arterial blood gas on 02/03/2018, pH of 7.36, pCO2 of 54, pO2 of 69 on 3 liter nasal cannula. The CBC on 02/03/2018, WBC count 19.8, hemoglobin 11.1, and hematocrit 36.5, and platelet count 312,000. PTT, which had been done a couple of times ranges between 138-74. The last PTT was noted at 09:59 at 74, which is noted mildly about therapeutic range. DIAGNOSTIC STUDIES: Review of the radiology data, ultrasound of the lower extremities were performed with evidence of acute deep venous thrombosis of left femoral vein, superficial femoral, popliteal, and peroneal veins. Chest x-ray that was done on 02/03/2018 in the Emergency Room was noted without any acute infiltration. Malposition of the multi-lumen catheter was noted. A CT scan of the chest that was done was personally reviewed without contrast, it was noted with evidence of tree-in-bud opacity mainly involving the basilar subsegment of the right upper lobe as well as the right lower lobe and some in the left lower lobe as well and small area of infiltration was also noted in the left lower lobe with a small loculated pleural fluid. There was no significant lymphadenopathy seen; however, the finding would be noted limited because of lack of intravenous contrast use. Certainly pulmonary embolism cannot be diagnosed because of study without intravenous contrast done. IMPRESSION: 1. The patient has been currently admitted to the hospital with a past history of chronic obstructive pulmonary disease with acute hypoxic respiratory failure with chronic hypercapnia. 2. Currently tree-in-bud opacity noted in the lung, suggests a possibility of chronic infection including Mycobacterium avium complex other and hypersensitivity pneumonitis. 3. Acute deep venous thrombosis of the left lower extremity, pulmonary embolism cannot be completely excluded. There were no study done with the exclusion of that diagnosis. 4. Acute pneumonia was noted in the left lower lobe with associated pleural effusion as well. 5. Recent hip fracture, which has been treated nonsurgically. Undergoing physical therapy with gradual improvement per family member in the past few [place], [place] REPORT OF CONSULTATION NAME: CHRIS RAMEY UNIT #: [id number] ROOM: [facility] [place] DOCTOR[facility] [birth year] [facility]. PLAN OF THERAPY: The patient has been currently getting broad spectrum intravenous antibiotics at the present time. I will be discontinuing the Zosyn and vancomycin. Just continue the Levaquin, primary antibiotic at the present time. Continue use of BiPAP for support of the respiratory failure. Sputum for Gram stain culture was ordered. Bronchodilator help mobilize secretions. Anticoagulation would be to continue with heparin with the use of either Coumadin or the other anticoagulant thrombin inhibitors could be used in the next several hours. Other supportive therapy, plan of management to be continued with the TCU treatment changes made accordingly. Titrate oxygen supplementation to maintain pulse ox saturation 92% or greater. QuantiFERON-TB Gold test as a part of the workup of the patient's tree-in-bud appearance. Further additional lab testing will be ordered as necessary. Usual care, other supportive plan of management and care plan. Continue current medical management of COPD with bronchodilators without any additional changes that need to be done since the patient does have an acute exacerbation of chronic obstructive pulmonary disease; however, the patient will be started on Dulera at this point. As long as the patient remain stable from pulmonary standpoint, respiratory shipman without any further hypoxia, additional testing for the assessment of pulmonary embolism does not need to be performed, if necessary the patient will be ordered V/Q scan for that purpose in future. Thanks for allowing me to participate in the care of this patient. LENNIE MCDUFFIE MD CM:CONSTR:REPORT OF CONSULTATION 1318 02/05/18 0223 interface
--- NOTE | ~2018-02-03 | CON ---
[place], [place] REPORT OF CONSULTATION NAME: CHRIS RAMEY UNIT #: [id number] ROOM: [facility] DOCTOR: RETA ARNDT MDLENNIE BIRTHDATE: [birth year] DOS: 02/04/2018 ADDENDUM PAST MEDICAL HISTORY: 1. Chronic obstructive pulmonary disease. 2. Chronic hypoxic respiratory failure, use of oxygen 2 liter nasal cannula previously at nighttime, currently during the day. 3. Congestive heart failure, diastolic dysfunction. 4. Chronic kidney disease, stage 3. 5. Coronary artery disease. 6. Severe debility. 7. Compression fracture of T12, L1, and L2. 8. History of degenerative arthritis as well. 9. Essential hypertension. 10. Gastroesophageal reflux. 11. Hypercholesterolemia. 12. Osteoporosis. 13. Recent right acetabular fracture after a fall at home. 14. Type 2 diabetes mellitus. 15. History of left breast cancer. PAST SURGICAL HISTORY: 1. Reported as cerebral aneurysm repair. 2. Cardiac catheterization, coronary stents insertion. 3. Complete hysterectomy. 4. Tubal ligation. 5. MediPort insertion for the peripheral venous access. 6. Left breast mastectomy for the management of the breast cancer. The surgery was done in 04/2012. SOCIAL HISTORY: The patient is currently a resident of detention, was living at home prior to the last admission and management in the [facility] facility. She has been noted with history of tobacco use. The patient started this in the early teens up to 2 packs of cigarettes per day that was discontinued in 09/2016. FAMILY HISTORY: The patient's father at 60 years with complication of pulmonary embolism with a history of COPD. Mother at the age of 67 years of complications of lung cancer. MEDICATIONS: From admission was listed as use of Symbicort HFA inhaler, Lasix, DuoNeb, Lopressor, Nystatin, omeprazole, Zofran, Requip, simvastatin, tamoxifen, vitamin D, and other p.r.n. medications. The current medications administered was noted as use of DuoNeb, unfractionated therapeutic heparin, Levaquin, IV Zosyn, vancomycin, and others. DRUG ALLERGIES: NOTED ALLERGY TO IVP DYE. PHYSICAL EXAMINATION: [place], [place] REPORT OF CONSULTATION NAME: CHRIS RAMEY UNIT #: [id number] ROOM: [facility] DOCTOR: RETA ARNDT MD,LENNIE BIRTHDATE: [birth year] GENERAL: A 72-year-old female who has been currently noted awake and alert, appeared to be ill looking patient and debilitated. Height of 4 feet 10 inches, weight 128 pounds, BMI 26. VITAL SIGNS: For the patient which are recorded showed the temperature noted T-max of 100.8 degree Fahrenheit, normal temperature, respiratory rate range between 18-34, heart rate 82-100, blood pressure 107/59-121/72. The pulse oxygen saturation recorded as 97% on nasal cannula. The patient on the BiPAP, 40% oxygen use with the BiPAP. HEENT: Examination shows head was atraumatic. Eyes nonicterus. NECK: Supple. Oral mucosa was moist. CARDIOVASCULAR SYSTEM: S1, S2 is audible. LUNGS: Noted generalized reduction in the breath sounds bilaterally. ABDOMEN: Soft, nontender. EXTREMITIES: The patient noted without any acute changes except edema of bilateral lower extremities. SKIN: Visible skin, no lesions or rashes. MUSCULOSKELETAL: With mild senile kyphosis. CENTRAL NERVOUS SYSTEM: General weakness and fatigue were noted. Further exam at this time, could not be performed. LABORATORY DATA: CMP that was done on 02/02/2018, BUN 25, creatinine 1.70, glucose 114. CO2 of 33. Lactic acid 1.9 on 02/03/2018. The PT/INR on 02/03/2018 was normal. PTT was normal on 02/03/2018 as well. CMP on 02/03/2018, BUN 24, creatinine 1.62. CO2 of 33. Arterial blood gas on 02/03/2018, pH of 7.36, pCO2 of 54, pO2 of 69 on 3 liter nasal cannula. The CBC on 02/03/2018, WBC count 19.8, hemoglobin 11.1, and hematocrit 36.5, and platelet count 312,000. PTT, which had been done a couple of times ranges between 138-74. The last PTT was noted at 09:59 at 74, which is noted mildly about therapeutic range. DIAGNOSTIC STUDIES: Review of the radiology data, ultrasound of the lower extremities were performed with evidence of acute deep venous thrombosis of left femoral vein, superficial femoral, popliteal, and peroneal veins. Chest x-ray that was done on 02/03/2018 in the Emergency Room was noted without any acute infiltration. Malposition of the multi-lumen catheter was noted. A CT scan of the chest that was done was personally reviewed without contrast, it was noted with evidence of tree-in-bud opacity mainly involving the basilar subsegment of the right upper lobe as well as the right lower lobe and some in the left lower lobe as well and small area of infiltration was also noted in the left lower lobe with a small loculated pleural fluid. There was no significant lymphadenopathy seen; however, the finding would be noted limited because of lack of intravenous contrast use. Certainly pulmonary embolism cannot be diagnosed because of study without intravenous contrast done. IMPRESSION: 1. The patient has been currently admitted to the hospital with a past history of chronic obstructive pulmonary disease with acute hypoxic respiratory failure with chronic hypercapnia. 2. Currently tree-in-bud opacity noted in the lung, suggests a possibility of chronic infection including Mycobacterium avium complex other and [place], [place] REPORT OF CONSULTATION NAME: CHRIS RAMEY UNIT #: [id number] ROOM: [facility] DOCTOR: RETA ARNDT MD,[facility] BIRTHDATE: [birth year] hypersensitivity pneumonitis. 3. Acute deep venous thrombosis of the left lower extremity, pulmonary embolism cannot be completely excluded. There were no study done with the exclusion of that diagnosis. 4. Acute pneumonia was noted in the left lower lobe with associated pleural effusion as well. 5. Recent hip fracture, which has been treated nonsurgically. Undergoing physical therapy with gradual improvement per family member in the past few weeks. PLAN OF THERAPY: The patient has been currently getting broad spectrum intravenous antibiotics at the present time. I will be discontinuing the Zosyn and vancomycin. Just continue the Levaquin, primary antibiotic at the present time. Continue use of BiPAP for support of the respiratory failure. Sputum for Gram stain culture was ordered. Bronchodilator help mobilize secretions. Anticoagulation would be to continue with heparin with the use of either Coumadin or the other anticoagulant thrombin inhibitors could be used in the next several hours. Other supportive therapy, plan of management to be continued with the TCU treatment changes made accordingly. Titrate oxygen supplementation to maintain pulse ox saturation 92% or greater. QuantiFERON-TB Gold test as a part of the workup of the patient's tree-in-bud appearance. Further additional lab testing will be ordered as necessary. Usual care, other supportive plan of management and care plan. Continue current medical management of COPD with bronchodilators without any additional changes that need to be done since the patient does have an acute exacerbation of chronic obstructive pulmonary disease; however, the patient will be started on Dulera at this point. As long as the patient remain stable from pulmonary standpoint, respiratory shipman without any further hypoxia, additional testing for the assessment of pulmonary embolism does not need to be performed, if necessary the patient will be ordered V/Q scan for that purpose in future. Thanks for allowing me to participate in the care of this patient. LENNIE MCDUFFIE MD CM:CONSTR:REPORT OF CONSULTATION 1330 02/05/18 0929 PATT [email or web address]
--- NOTE | ~2018-02-03 | PR ---
[place], [place] PROGRESS NOTE [id number] UNIT #: [id number] ROOM: [facility] DOCTOR: RETA ARNDT MD,LENNIE BIRTHDATE: [birth year] DOS: 02/05/2018 SUBJECTIVE: She has been noted comfortable at this time, noted decreased shortness of breath. Denies any symptoms of chest pain. The cough has been noted mild without any sputum expectoration. She denies symptoms of hemoptysis. General weakness and fatigue were noted. Denies edema or pain of the lower extremities. The patient denies any symptoms of hemoptysis. She was continued on the anticoagulation. She was switched to Xarelto by the primary care attending and the therapeutic unfractionated heparin was discontinued yesterday. She was started on Xarelto 15 mg b.i.d. REVIEW OF SYSTEMS: Complete with the patient was noted negate OBJECTIVE: VITAL SIGNS: Normal temperature, respiratory rate 19, heart rate 94, blood pressure 95/47 and 94/53. Pulse oxygen saturation recorded as 100% with the BiPAP and nasal cannula. The patient is on 99% saturation of oxygen. HEENT: Examination shows head was atraumatic. Eyes nonicterus. NECK: Supple. CARDIOVASCULAR: S1, S2 is audible. LUNGS: The patient noted with [id number] decreased breath sounds. Crackles in the lung bases bilaterally. ABDOMEN: Soft with [id number] obesity. EXTREMITIES: Show mild edema of the extremities. MUSCULOSKELETAL: Chronic senile kyphosis, no acute changes. VISIBLE SKIN: No lesions or rashes. CENTRAL NERVOUS SYSTEM: General weakness and fatigue. LABORATORY DATA: BMP of the patient this morning, BUN 33, creatinine 2.08, glucose normal, CO2 34. Albumin 2.1, total protein 5.7. CBC this morning, WBC count 11.9, hemoglobin 9.3, hematocrit of 30.9, platelet count 247,000. IMPRESSION: 1. The patient with evidence of acute deep venous thrombosis, left lower extremity, treated with current Xarelto therapeutic dose 50 mg b.i.d. 3. Possibility of acute pneumonia. The patient's left lower lobe with addition of pulmonary nodule, rule out chronic infection because of tree-in-bud appearance. 4. Severe debility also persisted. 5. Recent hip fracture. The patient currently treated conservatively. 6. Acute hypoxic respiratory failure. EKG of chronic obstructive pulmonary disease. 7. Chronic hypercapnic respiratory failure. PLAN OF TREATMENT: Continue antibiotics, bronchodilators, and oxygen supplementation. Other therapy plan as previously. Continue anticoagulation. Bronchodilator therapy, plan of management as in progress. Usual care. Supportive treatment and therapies and plan of management. [place], [place] PROGRESS NOTE NAME: CHRIS RAMEY UNIT #: [id number] ROOM: [facility] DOCTOR: LENNIE ELIAS MD BIRTHDATE: [birth year] LENNIE MCDUFFIE MD CM:LEYLA 0929 [id number] LENNIE ARNDT MD 02/05/18 1759 interface
--- NOTE | ~2018-02-03 | O ---
[place], [place] OPERATIVE NOTE NAME: CHRIS RAMEY UNIT #: [id number] ROOM: [facility] DOCTOR: SNOW BHATTI,BELIA BIRTHDATE: [birth year] DOS: 02/06/2018 GASTROENDOSCOPIC REPORT INDICATIONS: A 72-year-old patient who presented with multiple medical problems, among which has been GI bleed, drop in H and H, the patient with DVTs that required anticoagulation. PROCEDURE: Today's procedure part of investigation is panendoscopy plus graphic series. PREMEDICATION: Propofol. SCOPE: Olympus forward-viewing gastroscope Q10 video. REPORT: After putting the patient in left lateral position, the scope was introduced. Thereafter, under direct visualization, advanced through the length of esophagus. Presence of blood in the esophagus was identified. I followed up to the hiatal hernia. Gastric pouch was entered. Bile reflux gastritis was seen, degraded blood signified. Hemorrhagic gastritis was noticed, photographed. Gastric content was suctioned out. Duodenal bulb, second and third part within normal limits. The patient extubated, no biopsy obtained since there is a need of anticoagulation therapy. PLAN AND DISCUSSION: We are going to continue with Protonix and adding Carafate to 2 grams slurry q.i.d. while she is inpatient. BELIA ADAMSON MD CM:OPRECORD:OPERATIVE NOTE 1715 [id number] BELIA ADAMSON MD 02/18/18 1419 interface
[~2018-02-03 11:50] MED LIST changes: -CALCIUM PO; -CEFEPIME2 GM IJ; -COLACE100 MG PO; -DUONEB 3 MG/3 ML3 M1 INH; -HEP-LOCK F100 UNIT/1 IV; -IMODIUM A-D2 M2 PO; -NYSTOP60 GM T; -REQUIP1 M1 PO; -RESOURCE 2.0 2237 ML PO; -TYLENOL325 M1 PO; -ZOFRAN4 MG PO
[2018-02-03 12:46] LABS: HEMATOCRIT 36.5 % (37.0-47.0); HEMOGLOBIN 11.1 g/dl (12.0-16.0); MEAN CELL VOLUME 98.1 fl (81.0-99.0); MEAN CORPUSCULAR HGB 29.8 pg (27.0-31.0); MEAN CORPUSCULAR HGB CONC 30.4 g/dl (33.0-37.0); MEAN PLATELET VOLUME 10.1 fl (9.6-12.3); PLATELET COUNT AUTOMATED 312 10*3/uL (130-400); RED BLOOD COUNT 3.72 10*6/uL (4.10-5.10); WHITE BLOOD COUNT 19.8 10*3/uL (4.8-10.8)
[2018-02-03 12:57] LABS: ACT PARTIAL THROMBO TIME 24.7 SECONDS (20.8-31.5); INTERNATIONAL NORM RATIO 1.1 (2.0-3.5)
[2018-02-03 12:58] LABS: ALBUMIN 2.3 gm/dl (3.1-4.5); ALKALINE PHOSPHATASE 98 U/L (45-117); BUN 24 mg/dl (7-24); CHLORIDE 102 mmol/L (98-107); CREATININE 1.62 mg/dL (0.55-1.02); SGOT/AST 24 IU/L (3-35); SGPT/ALT 16 U/L (12-78); SODIUM 142 mmol/L (136-145); TOTAL PROTEIN 5.8 gm/dL (6.4-8.2)
[2018-02-03 13:00] LABS: POTASSIUM 4.4 mmol/L (3.5-5.1); TROPONIN I < 0.015 ng/ml (<0.045)
[2018-02-03 13:00] LABS: ABG BASE EXCESS 4.4 mmol/L (-2.0-2.0); ABG HCO3 30.1 mmol/l (22-26); ABG O2 SATURATION 92.5 % (95-97); ARTERIAL BLOOD GAS PCO2 54.1 mmHg (35-45); ARTERIAL BLOOD GAS PH 7.366 (7.35-7.45); ARTERIAL BLOOD GAS PO2 69.1 mmHg (80-90)
[2018-02-03 13:05] LABS: BASOPHILS 1 % (0-1); PLATELET SUFFICIENCY NORMAL (NORMAL); TOTAL CELLS COUNTED 100 #CELLS
[2018-02-03 13:08] LABS: BILIRUBIN NEGATIVE (NEGATIVE); BLOOD NEGATIVE (NEGATIVE); CLARITY CLEAR (CLEAR); COLOR YELLOW (YELLOW); GLUCOSE NEGATIVE (NEGATIVE); KETONE NEGATIVE (NEGATIVE); LEUKO ESTERASE NEGATIVE (NEGATIVE); NITRITE NEGATIVE (NEGATIVE); PH 5.5 (5.0-9.0); UROBILINOGEN 0.2 E.U./dl (0.2-1.0)
[2018-02-03 13:16] LABS: RBC 0-2 rbc/hpf (0-2)
[2018-02-03 13:17] LABS: BACTERIA TRACE; HYALINE CAST 50-60
[2018-02-03] MEDS ORDERED: RESOURCE 2.0 2237 ML PO (14:22)
[2018-02-03] MEDS ORDERED: CALCIUM PO (14:24)
[2018-02-03] MEDS ORDERED: COLACE100 MG PO (14:25)
[2018-02-03] MEDS ORDERED: DUONEB 3 MG/3 ML3 M1 INH ×2 (14:26→14:27)
[2018-02-03] MEDS ORDERED: HEP-LOCK F100 UNIT/1 IV (14:28)
[2018-02-03] MEDS ORDERED: IMODIUM A-D2 M2 PO (14:29)
[2018-02-03] MEDS ORDERED: NYSTOP60 GM T (14:31)
[2018-02-03] MEDS ORDERED: REQUIP1 M1 PO (14:32)
[2018-02-03] MEDS ORDERED: TYLENOL325 M1 PO (14:34)
[2018-02-03] MEDS ORDERED: ZOFRAN4 MG PO (14:35)
[2018-02-04] VITALS: BP 104/55
[2018-02-04 04:00] VITALS: BP 107/59
[2018-02-04 06:11] LABS: BASO % 0.1 % (0.0-1.0); EOS % 0.1 % (1.0-4.0); HEMATOCRIT 32.1 % (37.0-47.0); HEMOGLOBIN 9.7 g/dl (12.0-16.0); LYMPH # 0.8 10*3/uL (1.3-4.4); LYMPH % 5.5 % (27.0-41.0); MEAN CELL VOLUME 98.8 fl (81.0-99.0); MEAN CORPUSCULAR HGB 29.8 pg (27.0-31.0); MEAN CORPUSCULAR HGB CONC 30.2 g/dl (33.0-37.0); MEAN PLATELET VOLUME 11.4 fl (9.6-12.3); MONO % 6.7 % (3.0-9.0); NEUT # 12.5 10*3/uL (2.3-7.9); NEUT % 86.7 % (47.0-73.0); PLATELET COUNT AUTOMATED 275 10*3/uL (130-400); RED BLOOD COUNT 3.25 10*6/uL (4.10-5.10); RED CELL DISTRI WIDTH 15.2 % (0-14.5); WHITE BLOOD COUNT 14.4 10*3/uL (4.8-10.8)
[2018-02-04 06:20] LABS: ALBUMIN 2.1 gm/dl (3.1-4.5); CREATININE 1.58 mg/dL (0.55-1.02); PHOSPHOROUS 2.8 mg/dL (2.5-4.9); POTASSIUM 4.2 mmol/L (3.5-5.1); TOTAL PROTEIN 5.5 gm/dL (6.4-8.2)
[2018-02-04 07:12] LABS: ACT PARTIAL THROMBO TIME 32.4 SECONDS (20.8-31.5); INTERNATIONAL NORM RATIO 1.1 (2.0-3.5)
[2018-02-04 08:00] VITALS: BP 102/60
[2018-02-04 12:00] VITALS: BP 99/66
[2018-02-04 16:00] VITALS: BP 99/46
[2018-02-04 20:00] VITALS: BP 94/53
[2018-02-05] VITALS: BP 90/48
[2018-02-05 04:00] VITALS: BP 89/53
[2018-02-05 07:19] LABS: BASO % 0.2 % (0.0-1.0); EOS # 0.1 10*3/uL (0.0-0.4); EOS % 1.2 % (1.0-4.0); HEMATOCRIT 30.9 % (37.0-47.0); HEMOGLOBIN 9.3 g/dl (12.0-16.0); LYMPH # 0.7 10*3/uL (1.3-4.4); MEAN CELL VOLUME 98.4 fl (81.0-99.0); MEAN CORPUSCULAR HGB 29.6 pg (27.0-31.0); MEAN CORPUSCULAR HGB CONC 30.1 g/dl (33.0-37.0); MEAN PLATELET VOLUME 10.3 fl (9.6-12.3); MONO # 0.8 10*3/uL (0.1-1.0); MONO % 6.5 % (3.0-9.0); NEUT # 10.1 10*3/uL (2.3-7.9); NEUT % 84.4 % (47.0-73.0); PLATELET COUNT AUTOMATED 247 10*3/uL (130-400); RED BLOOD COUNT 3.14 10*6/uL (4.10-5.10); RED CELL DISTRI WIDTH 15.4 % (0-14.5); WHITE BLOOD COUNT 11.9 10*3/uL (4.8-10.8)
[2018-02-05 07:35] LABS: ALBUMIN 2.1 gm/dl (3.1-4.5); CREATININE 2.08 mg/dL (0.55-1.02); PHOSPHOROUS 2.6 mg/dL (2.5-4.9); POTASSIUM 4.2 mmol/L (3.5-5.1); TOTAL PROTEIN 5.7 gm/dL (6.4-8.2)
[2018-02-05 08:00] VITALS: BP 95/47
[2018-02-05 11:41] VITALS: BP 116/64
[2018-02-05 15:49] VITALS: BP 99/55
[2018-02-05 16:39] LABS: CREATININE 2.22 mg/dL (0.55-1.02); POTASSIUM 3.9 mmol/L (3.5-5.1)
[2018-02-05 18:04] LABS: BILIRUBIN 1+ (NEGATIVE); BLOOD 3+ (NEGATIVE); CLARITY CLOUDY (CLEAR); COLOR ORANGE (YELLOW); GLUCOSE NEGATIVE (NEGATIVE); KETONE TRACE (NEGATIVE); NITRITE POSITIVE (NEGATIVE); PH 5.5 (5.0-9.0)
[2018-02-05 18:08] LABS: LEUKO ESTERASE TRACE (NEGATIVE)
[2018-02-05 18:09] LABS: RBC TNTC rbc/hpf (0-2)
[2018-02-05 20:00] VITALS: BP 107/56
[2018-02-06] VITALS (12 sets, daily range): BP systolic 101–128; BP diastolic 50–73
[2018-02-06 06:47] LABS: BASO % 0.2 % (0.0-1.0); EOS # 0.2 10*3/uL (0.0-0.4); EOS % 1.8 % (1.0-4.0); HEMOGLOBIN 7.3 g/dl (12.0-16.0); LYMPH # 0.7 10*3/uL (1.3-4.4); MEAN CELL VOLUME 99.2 fl (81.0-99.0); MEAN CORPUSCULAR HGB CONC 30.3 g/dl (33.0-37.0); MEAN PLATELET VOLUME 10.5 fl (9.6-12.3); MONO # 0.7 10*3/uL (0.1-1.0); MONO % 6.8 % (3.0-9.0); NEUT # 7.8 10*3/uL (2.3-7.9); NEUT % 81.3 % (47.0-73.0); PLATELET COUNT AUTOMATED 198 10*3/uL (130-400); RED BLOOD COUNT 2.43 10*6/uL (4.10-5.10); RED CELL DISTRI WIDTH 15.5 % (0-14.5); WHITE BLOOD COUNT 9.6 10*3/uL (4.8-10.8)
[2018-02-06 06:53] LABS: HEMATOCRIT 24.1 % (37.0-47.0)
[2018-02-06 07:05] LABS: ALBUMIN 2.3 gm/dl (3.1-4.5); CREATININE 1.72 mg/dL (0.55-1.02); POTASSIUM 3.9 mmol/L (3.5-5.1); TOTAL PROTEIN 5.2 gm/dL (6.4-8.2)
[2018-02-06 08:16] LABS: HEMATOCRIT 25.6 % (37.0-47.0); HEMOGLOBIN 7.7 g/dl (12.0-16.0); MEAN CELL VOLUME 99.2 fl (81.0-99.0); MEAN CORPUSCULAR HGB 29.8 pg (27.0-31.0); MEAN CORPUSCULAR HGB CONC 30.1 g/dl (33.0-37.0); MEAN PLATELET VOLUME 9.7 fl (9.6-12.3); PLATELET COUNT AUTOMATED 203 10*3/uL (130-400); RED BLOOD COUNT 2.58 10*6/uL (4.10-5.10); RED CELL DISTRI WIDTH 15.5 % (0-14.5); WHITE BLOOD COUNT 9.8 10*3/uL (4.8-10.8)
[2018-02-06 08:30] LABS: BASOPHILS 1 % (0-1); PLATELET SUFFICIENCY NORMAL (NORMAL); POLYCHROMASIA SLIGHT; TOTAL CELLS COUNTED 100 #CELLS
[2018-02-06 14:57] LABS: HEMATOCRIT 31.2 % (37.0-47.0); HEMOGLOBIN 9.7 g/dl (12.0-16.0)
[2018-02-06 15:04] LABS: ANTI-THROMBIN III ACTIVITY 103 % (75-135); ANTICARDIOLIPIN AB, IGG, QN <9 GPL U/mL (0-14); ANTICARDIOLIPIN AB, IGM, QN <9 MPL U/mL (0-12); CARDIOLIPIN AB IGA 161836 <9 APL U/mL (0-11); PROTEIN S, FREE 139 % (57-157); PROTEIN S, TOTAL 81 % (60-150)
[2018-02-07] VITALS (14 sets, daily range): BP systolic 70–133; BP diastolic 0–76
[2018-02-07 05:35] LABS: INTERNATIONAL NORM RATIO 1.3 (2.0-3.5)
[2018-02-07 05:41] LABS: ALBUMIN 2.5 gm/dl (3.1-4.5); CREATININE 1.41 mg/dL (0.55-1.02); PHOSPHOROUS 1.8 mg/dL (2.5-4.9); POTASSIUM 3.4 mmol/L (3.5-5.1); TOTAL PROTEIN 5.7 gm/dL (6.4-8.2)
[2018-02-07 06:03] LABS: HEMATOCRIT 33.4 % (37.0-47.0); HEMOGLOBIN 9.9 g/dl (12.0-16.0); MEAN CELL VOLUME 97.4 fl (81.0-99.0); MEAN CORPUSCULAR HGB 28.9 pg (27.0-31.0); MEAN CORPUSCULAR HGB CONC 29.6 g/dl (33.0-37.0); PLATELET COUNT AUTOMATED 199 10*3/uL (130-400); RED BLOOD COUNT 3.43 10*6/uL (4.10-5.10); WHITE BLOOD COUNT 11.3 10*3/uL (4.8-10.8)
[2018-02-07 06:37] LABS: TOTAL CELLS COUNTED 100 #CELLS; TOXIC GRANULATION SLIGHT
[2018-02-07 06:38] LABS: PLATELET SUFFICIENCY NORMAL (NORMAL)
[2018-02-07] MEDS ORDERED: CEFEPIME2 GM IJ (15:51)
[2018-02-09 07:40] LABS: LUPUS DRVVT >180.0 sec (0.0-47.0)
[2018-02-09 07:41] LABS: PTT-LA 57.4 sec (0.0-51.9)
[2018-02-09 07:41] LABS: MITOGEN VALUE 0.99 IU/mL (.); TB Ag VALUE 0.09 IU/mL (.); TB GOLD Negative (Negative)
[2018-02-09 09:05] LABS: HEXAGONAL PHASE PHOSPHOLIPID 0 sec (0-11); LUPUS REFLEX INTERPRETATION Comment: (.); PTT-LA MIX 55.9 sec (0.0-48.9)
[2018-02-09 09:55] LABS: DVVTMIXRFX CHG
[2018-02-10 01:03] LABS: ADENOVIRUS Negative (Negative); INFLUENZA A Negative (Negative); INFLUENZA B Negative (Negative); METAPNEUMOVIRUS Negative (Negative); PARAINFLUENZA 1 Negative (Negative); PARAINFLUENZA 2 Negative (Negative); PARAINFLUENZA 3 Negative (Negative); RHINOVIRUS Negative (Negative); RSV A Negative (Negative); RSV B Negative (Negative)
== END 2018-02-07 17:18 | disposition short-term general hospital (02) | DRG 871 ==
LOC: ED 11:50 → EDHOLD 13:18 → ICCU 13:18
PROVIDERS: Emergency Medicine; Family Medicine; Internal Medicine; Internal Medicine Critical Care Medicine; Internal Medicine Nephrology
PROC: B547ZZA Ultrasonography of Left Subclavian Vein, Guidance (ICD-10-PCS; principal; 2018-02-03)
PROC: 05H633Z Insertion of Infusion Device into Left Subclavian Vein, Percutaneous Approach (ICD-10-PCS; principal; 2018-02-03)
PROC: 02HV33Z Insertion of Infusion Device into Superior Vena Cava, Percutaneous Approach (ICD-10-PCS; principal; 2018-02-03)
PROC: 5A09357 Assistance with Respiratory Ventilation, Less than 24 Consecutive Hours, Continuous Positive Airway Pressure (ICD-10-PCS; 2018-02-04)
PROC: 5A09357 Assistance with Respiratory Ventilation, Less than 24 Consecutive Hours, Continuous Positive Airway Pressure (ICD-10-PCS; 2018-02-05)
PROC: BD1BYZZ Fluoroscopy of Mouth/Oropharynx using Other Contrast (ICD-10-PCS; 2018-02-05)
PROC: 30233N1 Transfusion of Nonautologous Red Blood Cells into Peripheral Vein, Percutaneous Approach (ICD-10-PCS; 2018-02-06)
PROC: 0DJ08ZZ Inspection of Upper Intestinal Tract, Via Natural or Artificial Opening Endoscopic (ICD-10-PCS; 2018-02-06)
DX: A41.9 Sepsis, unspecified organism (principal); J96.21 Acute and chronic respiratory failure with hypoxia; E43 Unspecified severe protein-calorie malnutrition; I50.33 Acute on chronic diastolic (congestive) heart failure; I82.412 Acute embolism and thrombosis of left femoral vein; E11.22 Type 2 diabetes mellitus with diabetic chronic kidney disease; J15.9 Unspecified bacterial pneumonia; N17.9 Acute kidney failure, unspecified; D62 Acute posthemorrhagic anemia; E11.65 Type 2 diabetes mellitus with hyperglycemia; J96.22 Acute and chronic respiratory failure with hypercapnia; K29.71 Gastritis, unspecified, with bleeding; E87.0 Hyperosmolality and hypernatremia; I13.0 Hypertensive heart and chronic kidney disease with heart failure and stage 1 through stage 4 chronic kidney disease, or unspecified chronic kidney disease; J44.0 Chronic obstructive pulmonary disease with (acute) lower respiratory infection; F33.9 Major depressive disorder, recurrent, unspecified; I82.432 Acute embolism and thrombosis of left popliteal vein; F41.9 Anxiety disorder, unspecified; K44.9 Diaphragmatic hernia without obstruction or gangrene; R65.20 Severe sepsis without septic shock; I89.0 Lymphedema, not elsewhere classified; E78.00 Pure hypercholesterolemia, unspecified; I48.0 Paroxysmal atrial fibrillation; M81.0 Age-related osteoporosis without current pathological fracture; E55.9 Vitamin D deficiency, unspecified; M51.36 Other intervertebral disc degeneration, lumbar region; K21.9 Gastro-esophageal reflux disease without esophagitis; I87.2 Venous insufficiency (chronic) (peripheral); N18.3 Chronic kidney disease, stage 3 (moderate); I25.10 Atherosclerotic heart disease of native coronary artery without angina pectoris; Z87.81 Personal history of (healed) traumatic fracture; Z99.81 Dependence on supplemental oxygen; Z91.041 Radiographic dye allergy status; Z85.3 Personal history of malignant neoplasm of breast; Z98.51 Tubal ligation status; Z90.12 Acquired absence of left breast and nipple; Z90.710 Acquired absence of both cervix and uterus; Z95.5 Presence of coronary angioplasty implant and graft; Z87.891 Personal history of nicotine dependence; Z83.6 Family history of other diseases of the respiratory system; Z83.3 Family history of diabetes mellitus; Z80.1 Family history of malignant neoplasm of trachea, bronchus and lung; Z95.828 Presence of other vascular implants and grafts; Z68.26 Body mass index [BMI] 26.0-26.9, adult

== ENCOUNTER → 2018-02-25 | Outpatient (CLI) | payer MEDICARE ==
[~2018-02-25] MED LIST changes: +CALCIUM PO; +CEFEPIME2 GM IJ; +COLACE100 MG PO; +DUONEB 3 MG/3 ML3 M1 INH; +HEP-LOCK F100 UNIT/1 IV; +IMODIUM A-D2 M2 PO; +NYSTOP60 GM T; +REQUIP1 M1 PO; +RESOURCE 2.0 2237 ML PO; +TYLENOL325 M1 PO; +ZOFRAN4 MG PO
== END | disposition home or self-care (01) ==
LOC: ORTHO 03:00
DX: M16.11 Unilateral primary osteoarthritis, right hip (principal)

== ENCOUNTER → 2018-05-20 | Day surgery (SDC) | payer MEDICARE, MEDICAID ==
[~2018-05-20] VITALS: Ht 147.3 cm; Wt 58.1 kg
[~2018-05-20] MED LIST changes: +ACCUNEB 0.1.25 MG/1 INH; +ACETAZOLAMIDE250 MG PO; +CALCIUM + VIT1 EACH PO; +CALCIUM500 M1 PO; +CEFUROXIME AXE250 MG PO; +D3-20002000 UNIT PO; +ELIQUIS5 M1 PO; +FERROUS SULFAT325 MG PO; +HEPARIN IV; +INCRUSE ELLI62.5 MCG INH; +IRON325 M1 PO; +K-TAB20 MEQ PO; +KLOR-CON M2020 ME1 PO; +KLOR-CON SPRIN10 MEQ PO; +LASIX40 MG PO; +MARINOL5 MG PO; +NYSTATIN1 EAC1 T; +PAROXETINE20 MG PO; +QUESTRAN LIGHT4 GM PO; +QUESTRAN POWDE378 GM PO; +REMERON15 M2 PO; +VITAMIN D-32000 UNIT PO; +Zofran4 MG SL
--- NOTE | ~2018-05-20 | O ---
[place], [place] OPERATIVE NOTE NAME: CHRIS RAMEY UNIT #: [id number] ROOM: DOCTOR: BELIA ADAMSON MD BIRTHDATE: [birth year] DOS: 05/20/2018 GASTROENDOSCOPIC REPORT INDICATIONS: This 72-year-old patient with a chief complaint of anorexia, "I cannot eat, losing weight." ALLERGIES: IODINE. FAMILY HISTORY: Noncontributory. PAST SURGICAL HISTORY: Mastectomy, hysterectomy, breast CA. PAST MEDICAL HISTORY: COPD, hypertension, DVT, and pulmonary embolism history. SOCIAL HISTORY: She stopped smoking 2 years ago. Nonalcohol consumer. GI SYMPTOMATOLOGY: Dyspepsia, anorexia, diarrhea. PROCEDURE: Today's procedure part of investigation is panendoscopy and colonoscopy. PREMEDICATION: Propofol. SCOPE: Olympus forward-viewing gastroscope Q10 video. REPORT: After putting the patient in left lateral position and application of lubricant to the scope, scope was introduced, thereafter under direct visualization advanced through the length of esophagus without difficulty. Esophagus, cervical, thoracic distally carefully examined. Hiatal hernia was noticed. Gastric pouch was entered. Gastritis was seen. Antral biopsy obtained. Duodenal bulb, second and third part within normal limits. No obstruction, no lesion, no carcinoma in the stomach was noticed, except at 3.5 cm a hiatal hernia. Antral biopsy obtained. The patient extubated after GI reflection of the scope to confirm the cardia of the stomach to be benign. IMPRESSION: Hiatal hernia, gastritis. PLAN AND DISCUSSION: We are going to continue with Prilosec therapy. If needed, we can start her on a trial of Marinol 5 mg daily to see how she does as far as her anorexia is concerned. On the other hand, we are going to proceed with colonoscopic evaluation today. Thank you very much indeed. INDICATIONS: The patient has presented with diarrhea, undergoing investigation. Some weight loss has been experienced because of anorexia. PROCEDURE #2: Today's procedure part of investigation is colonoscopy plus biopsy plus tattoo marking of the mid ascending colon. [place], [place] OPERATIVE NOTE NAME: CHRIS RAMEY UNIT #: [id number] ROOM: DOCTOR: BELIA ADAMSON MD BIRTHDATE: [birth year] PREMEDICATION: Propofol. SCOPE: Olympus forward-viewing colonoscope 10L video. REPORT: After putting the patient in left lateral position and application of lubricant to the scope, the scope was introduced, thereafter under direct visualization advanced through the length of colon without difficulty. Colon mucosa and vascularity carefully examined, base of the cecum explored, appendiceal orifice identified. In the mid ascending colon, there is a cluster of polyps, which is practically covering three-fourth of the lumen, multiple ____ of polyps. These are deeply infiltrated and somewhat ulcerated on surface. Biopsies were obtained ruling out dysplastic cell. The area was tattoo marked with 2 mL of blue ink. The patient was extubated, tolerated the procedure well. IMPRESSION: Mid ascending cluster of polyps, status post biopsy, status post tattoo marking. PLAN AND DISCUSSION: These polyps are non-removable through polypectomy, particularly the patient needs to be on anticoagulants. Therefore, we are going to await biopsy results and decision making regarding surgical resection or not. Considerations are being the multiple chronic medical issues that she has, i.e., DVT, pulmonary embolism, COPD, hypertension. These have been all of concerns. As far as the hepatitis stimulation, Marinol I am going to provide her a prescription 5 mg daily. As far as diarrhea etiology is concerned, it could be related to a polypoid lesion, particularly a tubular adenoma cause. Thank you. BELIA ADAMSON MD CM:OPRECORD:OPERATIVE NOTE 1129 1318 BELIA ADAMSON MD 05/20/18 1319 interface
[2018-05-20 10:15] VITALS: BP 123/83
[2018-05-20 11:18] VITALS: BP 87/60
[2018-05-20 11:33] VITALS: BP 94/62
[2018-05-20 11:48] VITALS: BP 127/54
[2018-05-20 12:03] VITALS: BP 132/62
== END | disposition home or self-care (01) ==
LOC: SDC 05-15 08:45
DX: D12.2 Benign neoplasm of ascending colon (principal); K29.50 Unspecified chronic gastritis without bleeding; K44.9 Diaphragmatic hernia without obstruction or gangrene; I11.0 Hypertensive heart disease with heart failure; I50.9 Heart failure, unspecified; I25.10 Atherosclerotic heart disease of native coronary artery without angina pectoris; I25.2 Old myocardial infarction; E11.9 Type 2 diabetes mellitus without complications; J44.9 Chronic obstructive pulmonary disease, unspecified; F32.9 Major depressive disorder, single episode, unspecified; Z86.718 Personal history of other venous thrombosis and embolism; Z90.710 Acquired absence of both cervix and uterus; Z85.3 Personal history of malignant neoplasm of breast; Z91.041 Radiographic dye allergy status; Z87.891 Personal history of nicotine dependence; Z86.711 Personal history of pulmonary embolism; Z79.01 Long term (current) use of anticoagulants; Z79.4 Long term (current) use of insulin; Z83.3 Family history of diabetes mellitus; Z83.6 Family history of other diseases of the respiratory system

== ENCOUNTER 2018-05-27 20:42 | Inpatient (IN) | payer MEDICARE, MEDICAID ==
[~2018-05-27] VITALS: Ht 154.9 cm; Wt 53.2 kg
--- NOTE | ~2018-05-27 | PR ---
[place], [place] PROGRESS NOTE NAME: CHRIS RAMEY UNIT #: [id number] ROOM: 528 DOCTOR: KEYONNA BHATTI,CAT Jim BIRTHDATE: [birth year] DOS: 05/30/2018 NEPHROLOGY FOLLOWUP SUBJECTIVE: The patient was seen and examined. She is awake and alert. She denies shortness of breath, fevers or chills. She thinks she is feeling better. She is on a nasal cannula, in no acute distress, sitting in a chair. PHYSICAL EXAMINATION: VITAL SIGNS: Temperature 97.7, pulse 62, respiratory rate 18, blood pressure 140/62. HEENT: Shows no JVD. LUNGS: Diminished breath sounds with no wheeze. HEART: S1, S2. No rub, thrill or gallop. ABDOMEN: Soft, nontender. EXTREMITIES: Showed no edema. SKIN: Showed no rash. LABORATORY DATA: Hemoglobin 8.8, white count of 7.9, platelets 167. Sodium 144, potassium 3.1, CO2 of 20, BUN 60, creatinine 4.3, calcium 10.4, phosphorus 3.4, magnesium 1.5, albumin 2.4. IMPRESSION: 1. Acute kidney injury, which seems to be related to prerenal factors. Creatinine continues to improve. Fluids to continue for now. Watch volume status carefully. Replace electrolytes. 2. Anemia. Transfuse as needed. 3. Urinary tract infection. The patient has been started on antibiotics. 4. Chronic obstructive pulmonary disease, on home O2. CAT NEWBY MD CM:PNTRANS 1430 CAT NEWBY MD 05/31/185 interface
--- NOTE | ~2018-05-27 | PR ---
[place], [place] PROGRESS NOTE NAME: CHRIS RAMEY UNIT #: [id number] ROOM: 528 DOCTOR: CAT NEWBY MD BIRTHDATE: [birth year] DOS: NEPHROLOGY NOTE SUBJECTIVE: The patient was seen and evaluated. She was lying in bed on nasal cannula. No acute distress. No events were noted. Seems to be comfortable. PHYSICAL EXAMINATION: VITAL SIGNS: Temperature 97.9, pulse 58, respiratory rate 18, blood pressure 143/66. HEENT: Shows no JVD. LUNGS: Diminished breath sounds with no wheeze. HEART: S1, S2. No rub, thrill or gallop. ABDOMEN: Soft, nontender. EXTREMITIES: Showed no edema. SKIN: Showed no rash. LABORATORY DATA: Glucose 94, BUN 47, creatinine 3.35, sodium 147, potassium 3.1, CO2 of 16, calcium 7.2, phosphorus 2.9, albumin of 2.2. IMPRESSION: 1. Acute kidney injury that seemed to be related to prerenal factors. The patient's creatinine continues to improve. Would continue fluids. Replace electrolytes. She is developing worsening hypernatremia and metabolic acidosis. Would consider changing fluids to half normal saline with 1 amp of sodium bicarbonate and 40 mEq of potassium. 2. Anemia. Transfuse as needed. 3. Urinary tract infection. The patient is on antibiotics. 4. Chronic obstructive pulmonary disease. She is on oxygen. CAT NEWBY MD CM:PNTRANS 1432 6 CAT NEWBY MD 06/01/18246 interface
--- NOTE | ~2018-05-27 | EKG ---
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
[~2018-05-27 20:42] MED LIST changes: -ACCUNEB 0.1.25 MG/1 INH; -ACETAZOLAMIDE250 MG PO; -CALCIUM + VIT1 EACH PO; -CEFUROXIME AXE250 MG PO; -D3-20002000 UNIT PO; -FERROUS SULFAT325 MG PO; -HEPARIN IV; -INCRUSE ELLI62.5 MCG INH; -IRON325 M1 PO; -K-TAB20 MEQ PO; -KLOR-CON M2020 ME1 PO; -NYSTATIN1 EAC1 T; -QUESTRAN LIGHT4 GM PO; -Zofran4 MG SL
[2018-05-27 20:56] VITALS: BP 115/65
[2018-05-27] MEDS ORDERED: MARINOL5 MG PO (21:02)
[2018-05-27] MEDS ORDERED: KLOR-CON SPRIN10 MEQ PO (21:02)
[2018-05-27] MEDS ORDERED: QUESTRAN LIGHT4 GM PO (21:03)
[2018-05-27] MEDS ORDERED: ACETAZOLAMIDE250 MG PO (21:05)
[2018-05-27] MEDS ORDERED: HEPARIN IV (21:05)
[2018-05-27] MEDS ORDERED: LASIX40 MG PO (21:05)
[2018-05-27] MEDS ORDERED: PAROXETINE20 MG PO (21:05)
[2018-05-27] MEDS ORDERED: D3-20002000 UNIT PO (21:06)
[2018-05-27] MEDS ORDERED: ACCUNEB 0.1.25 MG/1 INH (21:07)
[2018-05-27] MEDS ORDERED: INCRUSE ELLI62.5 MCG INH (21:07)
[2018-05-27] MEDS ORDERED: REMERON15 M2 PO (21:08)
[2018-05-27] MEDS ORDERED: LOPRESSOR25 MG PO (21:08)
[2018-05-27] MEDS ORDERED: CALCIUM + VIT1 EACH PO (21:09)
[2018-05-27] MEDS ORDERED: ELIQUIS5 M1 PO (21:09)
[2018-05-27] MEDS ORDERED: IMODIUM A-D2 M2 PO (21:10)
[2018-05-27] MEDS ORDERED: NYSTATIN1 EAC1 T (21:10)
[2018-05-27] MEDS ORDERED: Zofran4 MG SL (21:10)
[2018-05-27] MEDS ORDERED: ZOCOR20 MG PO (21:11)
[2018-05-27] MEDS ORDERED: SYMB160 INH (21:11)
[2018-05-27 21:17] VITALS: BP 97/64
[2018-05-27 21:37] LABS: BASO % 0.4 % (0.0-1.0); EOS # 0.2 10*3/uL (0.0-0.4); EOS % 2.2 % (1.0-4.0); HEMATOCRIT 31.6 % (37.0-47.0); HEMOGLOBIN 9.8 g/dl (12.0-16.0); LYMPH # 2.1 10*3/uL (1.3-4.4); LYMPH % 26.1 % (27.0-41.0); MEAN CELL VOLUME 98.4 fl (81.0-99.0); MEAN CORPUSCULAR HGB 30.5 pg (27.0-31.0); MEAN PLATELET VOLUME 11.6 fl (9.6-12.3); MONO # 0.5 10*3/uL (0.1-1.0); MONO % 6.2 % (3.0-9.0); NEUT # 5.2 10*3/uL (2.3-7.9); NEUT % 64.7 % (47.0-73.0); PLATELET COUNT AUTOMATED 178 10*3/uL (130-400); RED BLOOD COUNT 3.21 10*6/uL (4.10-5.10); RED CELL DISTRI WIDTH 13.7 % (0-14.5); WHITE BLOOD COUNT 8.1 10*3/uL (4.8-10.8)
[2018-05-27 21:48] LABS: ACT PARTIAL THROMBO TIME 30.1 SECONDS (20.8-31.5); INTERNATIONAL NORM RATIO 1.1 (2.0-3.5)
[2018-05-27 21:52] LABS: BILIRUBIN 3+ (NEGATIVE); BLOOD 3+ (NEGATIVE); CLARITY TURBID (CLEAR); COLOR BROWN (YELLOW); GLUCOSE TRACE (NEGATIVE); KETONE TRACE (NEGATIVE); NITRITE POSITIVE (NEGATIVE); PH 6.5 (5.0-9.0)
[2018-05-27 21:54] LABS: ALBUMIN 2.7 gm/dl (3.1-4.5); CREATININE 6.84 mg/dL (0.55-1.02); POTASSIUM 4.2 mmol/L (3.5-5.1); TOTAL PROTEIN 5.8 gm/dL (6.4-8.2)
[2018-05-27 21:55] LABS: LEUKO ESTERASE 2+ (NEGATIVE)
[2018-05-27 21:55] LABS: TROPONIN I 0.02 ng/ml (<0.045)
[2018-05-27 22:02] LABS: RBC TNTC rbc/hpf (0-2)
[2018-05-27 22:13] VITALS: BP 115/67
[2018-05-27 23:00] VITALS: BP 137/53
[2018-05-28] VITALS: BP 137/53
[2018-05-28 06:34] LABS: BASO % 0.4 % (0.0-1.0); EOS # 0.3 10*3/uL (0.0-0.4); EOS % 3.3 % (1.0-4.0); HEMATOCRIT 32.8 % (37.0-47.0); HEMOGLOBIN 9.8 g/dl (12.0-16.0); LYMPH # 2.2 10*3/uL (1.3-4.4); LYMPH % 28.6 % (27.0-41.0); MEAN CELL VOLUME 101.2 fl (81.0-99.0); MEAN CORPUSCULAR HGB 30.2 pg (27.0-31.0); MEAN CORPUSCULAR HGB CONC 29.9 g/dl (33.0-37.0); MEAN PLATELET VOLUME 11.9 fl (9.6-12.3); MONO # 0.5 10*3/uL (0.1-1.0); MONO % 6.3 % (3.0-9.0); NEUT # 4.6 10*3/uL (2.3-7.9); PLATELET COUNT AUTOMATED 175 10*3/uL (130-400); RED BLOOD COUNT 3.24 10*6/uL (4.10-5.10); RED CELL DISTRI WIDTH 13.7 % (0-14.5); WHITE BLOOD COUNT 7.6 10*3/uL (4.8-10.8)
[2018-05-28 07:05] LABS: CREATININE 6.39 mg/dL (0.55-1.02); PHOSPHOROUS 3.8 mg/dL (2.5-4.9)
[2018-05-28 08:00] VITALS: BP 110/60
[2018-05-28 12:00] VITALS: BP 102/47
[2018-05-28 16:00] VITALS: BP 106/60
[2018-05-28 20:00] VITALS: BP 112/66
[2018-05-29] VITALS: BP 111/65
[2018-05-29 08:00] VITALS: BP 118/70
[2018-05-29 08:24] LABS: BASO # 0.1 10*3/uL (0.0-0.1); BASO % 0.6 % (0.0-1.0); EOS # 0.3 10*3/uL (0.0-0.4); EOS % 4.2 % (1.0-4.0); HEMOGLOBIN 8.8 g/dl (12.0-16.0); LYMPH # 1.8 10*3/uL (1.3-4.4); LYMPH % 22.4 % (27.0-41.0); MEAN CELL VOLUME 100.3 fl (81.0-99.0); MEAN CORPUSCULAR HGB 30.4 pg (27.0-31.0); MEAN CORPUSCULAR HGB CONC 30.3 g/dl (33.0-37.0); MEAN PLATELET VOLUME 10.5 fl (9.6-12.3); MONO # 0.5 10*3/uL (0.1-1.0); MONO % 6.2 % (3.0-9.0); NEUT # 5.3 10*3/uL (2.3-7.9); NEUT % 66.2 % (47.0-73.0); PLATELET COUNT AUTOMATED 167 10*3/uL (130-400); RED BLOOD COUNT 2.89 10*6/uL (4.10-5.10); RED CELL DISTRI WIDTH 13.9 % (0-14.5); WHITE BLOOD COUNT 7.9 10*3/uL (4.8-10.8)
[2018-05-29 08:36] LABS: ALBUMIN 2.5 gm/dl (3.1-4.5); CREATININE 5.28 mg/dL (0.55-1.02); PHOSPHOROUS 3.6 mg/dL (2.5-4.9); POTASSIUM 3.8 mmol/L (3.5-5.1); TOTAL PROTEIN 5.4 gm/dL (6.4-8.2)
[2018-05-29 16:00] VITALS: BP 122/48
[2018-05-29 20:00] VITALS: BP 98/55
[2018-05-30] VITALS: BP 114/54
[2018-05-30 07:10] LABS: ALBUMIN 2.4 gm/dl (3.1-4.5); CREATININE 4.34 mg/dL (0.55-1.02); PHOSPHOROUS 3.4 mg/dL (2.5-4.9); POTASSIUM 3.1 mmol/L (3.5-5.1)
[2018-05-30 07:14] LABS: TOTAL PROTEIN 5.2 gm/dL (6.4-8.2)
[2018-05-30 08:00] VITALS: BP 122/64
[2018-05-30 12:00] VITALS: BP 140/62
[2018-05-30 16:00] VITALS: BP 130/68
[2018-05-30 20:00] VITALS: BP 112/50
[2018-05-31] VITALS: BP 117/52
[2018-05-31 06:34] LABS: ALBUMIN 2.2 gm/dl (3.1-4.5); CREATININE 3.35 mg/dL (0.55-1.02); PHOSPHOROUS 2.9 mg/dL (2.5-4.9); POTASSIUM 3.1 mmol/L (3.5-5.1)
[2018-05-31 08:00] VITALS: BP 132/64; BP 136/67
[2018-05-31 12:00] VITALS: BP 143/66
[2018-05-31 16:00] VITALS: BP 129/55
[2018-05-31 20:00] VITALS: BP 113/45; BP 127/63
[2018-06-01] VITALS: BP 115/44
[2018-06-01 06:36] LABS: CREATININE 2.64 mg/dL (0.55-1.02); PHOSPHOROUS 2.7 mg/dL (2.5-4.9); POTASSIUM 3.1 mmol/L (3.5-5.1)
[2018-06-01 08:00] VITALS: BP 114/70
[2018-06-01 12:00] VITALS: BP 117/70
[2018-06-01 16:00] VITALS: BP 133/55
[2018-06-01 20:00] VITALS: BP 130/67
[2018-06-02] VITALS: BP 108/47
[2018-06-02 06:47] LABS: BASO % 0.3 % (0.0-1.0); EOS # 0.1 10*3/uL (0.0-0.4); EOS % 1.2 % (1.0-4.0); HEMATOCRIT 26.6 % (37.0-47.0); HEMOGLOBIN 8.3 g/dl (12.0-16.0); LYMPH % 14.4 % (27.0-41.0); MEAN CELL VOLUME 98.5 fl (81.0-99.0); MEAN CORPUSCULAR HGB 30.7 pg (27.0-31.0); MEAN CORPUSCULAR HGB CONC 31.2 g/dl (33.0-37.0); MEAN PLATELET VOLUME 11.4 fl (9.6-12.3); MONO # 0.3 10*3/uL (0.1-1.0); NEUT # 5.3 10*3/uL (2.3-7.9); NEUT % 78.7 % (47.0-73.0); PLATELET COUNT AUTOMATED 133 10*3/uL (130-400); RED CELL DISTRI WIDTH 14.7 % (0-14.5); WHITE BLOOD COUNT 6.7 10*3/uL (4.8-10.8)
[2018-06-02 07:10] LABS: ALBUMIN 2.2 gm/dl (3.1-4.5); ALKALINE PHOSPHATASE 40 U/L (45-117); BUN 33 mg/dl (7-24); CHLORIDE 124 mmol/L (98-107); CREATININE 2.24 mg/dL (0.55-1.02); SGOT/AST 17 IU/L (3-35); SGPT/ALT 7 U/L (12-78); SODIUM 149 mmol/L (136-145); TOTAL PROTEIN 4.7 gm/dL (6.4-8.2)
[2018-06-02 08:00] VITALS: BP 116/54
[2018-06-02] MEDS ORDERED: ELIQUIS5 M1 PO (10:18)
[2018-06-02] MEDS ORDERED: CEFUROXIME AXE250 MG PO (10:19)
[2018-06-11] MEDS ORDERED: FERROUS SULFAT325 MG PO (08:51)
[2018-06-11] MEDS ORDERED: K-TAB20 MEQ PO (08:52)
[2018-06-11] MEDS ORDERED: LASIX20 MG PO (08:53)
[2018-06-11] MEDS ORDERED: ACETAZOLAMIDE250 MG PO (08:55)
== END 2018-06-02 13:44 | DRG 682 ==
LOC: ED 20:42 → EDHOLD 22:17 → 5E 22:17 → EDHOLD 22:40 → 5E 22:47
PROVIDERS: Internal Medicine; Physician Assistant; Registered Nurse; Student in an Organized Health Care Education/Training Program
DX: N17.1 Acute kidney failure with acute cortical necrosis (principal); E43 Unspecified severe protein-calorie malnutrition; M62.82 Rhabdomyolysis; N39.0 Urinary tract infection, site not specified; J96.11 Chronic respiratory failure with hypoxia; I50.32 Chronic diastolic (congestive) heart failure; I13.0 Hypertensive heart and chronic kidney disease with heart failure and stage 1 through stage 4 chronic kidney disease, or unspecified chronic kidney disease; B37.0 Candidal stomatitis; N18.3 Chronic kidney disease, stage 3 (moderate); L89.151 Pressure ulcer of sacral region, stage 1; M81.0 Age-related osteoporosis without current pathological fracture; M51.37 Other intervertebral disc degeneration, lumbosacral region; I25.10 Atherosclerotic heart disease of native coronary artery without angina pectoris; D72.810 Lymphocytopenia; R80.9 Proteinuria, unspecified; R82.2 Biliuria; R81 Glycosuria; J41.0 Simple chronic bronchitis; E78.00 Pure hypercholesterolemia, unspecified; F32.9 Major depressive disorder, single episode, unspecified; E55.9 Vitamin D deficiency, unspecified; I89.0 Lymphedema, not elsewhere classified; E11.22 Type 2 diabetes mellitus with diabetic chronic kidney disease; I48.0 Paroxysmal atrial fibrillation; K21.9 Gastro-esophageal reflux disease without esophagitis; Z68.20 Body mass index [BMI] 20.0-20.9, adult; Z83.6 Family history of other diseases of the respiratory system; Z99.81 Dependence on supplemental oxygen; Z81.2 Family history of tobacco abuse and dependence; Z83.3 Family history of diabetes mellitus; Z87.891 Personal history of nicotine dependence; Z90.12 Acquired absence of left breast and nipple; Z88.9 Allergy status to unspecified drugs, medicaments and biological substances; Z95.5 Presence of coronary angioplasty implant and graft; Z90.710 Acquired absence of both cervix and uterus; Z98.51 Tubal ligation status

== ENCOUNTER 2018-06-08 16:34 | Inpatient (IN) | payer MEDICARE, MEDICAID ==
[~2018-06-08] VITALS: Ht 147.3 cm; Wt 48.3 kg
--- NOTE | ~2018-06-08 | EKG ---
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
[2018-06-08 16:34] VITALS: BP 116/58
[~2018-06-08 16:34] MED LIST changes: +ACCUNEB 0.1.25 MG/1 INH; +ACETAZOLAMIDE250 MG PO; +CALCIUM + VIT1 EACH PO; +CEFUROXIME AXE250 MG PO; +D3-20002000 UNIT PO; +HEPARIN IV; +INCRUSE ELLI62.5 MCG INH; +NYSTATIN1 EAC1 T; +QUESTRAN LIGHT4 GM PO; +Zofran4 MG SL
[2018-06-08 17:33] LABS: BASO % 0.2 % (0.0-1.0); EOS # 0.1 10*3/uL (0.0-0.4); HEMATOCRIT 24.9 % (37.0-47.0); HEMOGLOBIN 8.1 g/dl (12.0-16.0); LYMPH # 1.7 10*3/uL (1.3-4.4); LYMPH % 20.7 % (27.0-41.0); MEAN CELL VOLUME 93.6 fl (81.0-99.0); MEAN CORPUSCULAR HGB 30.5 pg (27.0-31.0); MEAN CORPUSCULAR HGB CONC 32.5 g/dl (33.0-37.0); MEAN PLATELET VOLUME 10.9 fl (9.6-12.3); MONO # 0.5 10*3/uL (0.1-1.0); MONO % 6.5 % (3.0-9.0); NEUT # 5.9 10*3/uL (2.3-7.9); NEUT % 71.1 % (47.0-73.0); PLATELET COUNT AUTOMATED 167 10*3/uL (130-400); RED BLOOD COUNT 2.66 10*6/uL (4.10-5.10); RED CELL DISTRI WIDTH 15.8 % (0-14.5); WHITE BLOOD COUNT 8.3 10*3/uL (4.8-10.8)
[2018-06-08 17:43] LABS: ACT PARTIAL THROMBO TIME 24.7 SECONDS (20.8-31.5)
[2018-06-08 17:51] LABS: ALBUMIN 2.3 gm/dl (3.1-4.5); ALKALINE PHOSPHATASE 39 U/L (45-117); BUN 27 mg/dl (7-24); CHLORIDE 123 mmol/L (98-107); CREATININE 1.84 mg/dL (0.55-1.02); IRON 27 ug/dL (50-170); LIPASE 180 U/L (73-393); POTASSIUM 2.7 mmol/L (3.5-5.1); SGOT/AST 18 IU/L (3-35); SGPT/ALT 9 U/L (12-78); SODIUM 147 mmol/L (136-145); TOTAL IRON BINDING CAPACITY 180 ug/dl (250-450); TOTAL PROTEIN 5.4 gm/dL (6.4-8.2)
[2018-06-08 17:56] LABS: TROPONIN I < 0.015 ng/ml (<0.045)
[2018-06-08 18:06] LABS: FERRITIN 129.8 ng/mL (10.0-291.0)
[2018-06-08 18:51] VITALS: BP 120/65
[2018-06-08 18:56] LABS: BILIRUBIN NEGATIVE (NEGATIVE); BLOOD 3+ (NEGATIVE); CLARITY SL CLOUDY (CLEAR); COLOR YELLOW (YELLOW); GLUCOSE NEGATIVE (NEGATIVE); KETONE NEGATIVE (NEGATIVE); LEUKO ESTERASE 1+ (NEGATIVE); NITRITE NEGATIVE (NEGATIVE); PH 5.5 (5.0-9.0); UROBILINOGEN 0.2 E.U./dl (0.2-1.0)
[2018-06-08 19:25] LABS: BACTERIA 2+; RBC 51-100 rbc/hpf (0-2); WBC 16-20 wbc/hpf (0-5); YEAST TRACE
[2018-06-08 20:35] VITALS: BP 118/73
[2018-06-08 20:36] VITALS: BP 109/47
[2018-06-09] VITALS: BP 118/46
[2018-06-09 06:57] LABS: BASO % 0.2 % (0.0-1.0); EOS % 0.5 % (1.0-4.0); HEMATOCRIT 24.2 % (37.0-47.0); HEMOGLOBIN 7.7 g/dl (12.0-16.0); LYMPH # 1.5 10*3/uL (1.3-4.4); LYMPH % 23.8 % (27.0-41.0); MEAN CELL VOLUME 95.7 fl (81.0-99.0); MEAN CORPUSCULAR HGB 30.4 pg (27.0-31.0); MEAN CORPUSCULAR HGB CONC 31.8 g/dl (33.0-37.0); MEAN PLATELET VOLUME 11.4 fl (9.6-12.3); MONO # 0.4 10*3/uL (0.1-1.0); MONO % 6.8 % (3.0-9.0); NEUT # 4.3 10*3/uL (2.3-7.9); NEUT % 68.2 % (47.0-73.0); PLATELET COUNT AUTOMATED 165 10*3/uL (130-400); RED BLOOD COUNT 2.53 10*6/uL (4.10-5.10); RED CELL DISTRI WIDTH 15.9 % (0-14.5); WHITE BLOOD COUNT 6.2 10*3/uL (4.8-10.8)
[2018-06-09 07:33] LABS: CREATININE 1.88 mg/dL (0.55-1.02); PHOSPHOROUS 2.6 mg/dL (2.5-4.9); POTASSIUM 3.5 mmol/L (3.5-5.1)
[2018-06-09] MEDS ORDERED: KLOR-CON M2020 ME1 PO (11:58)
[2018-06-09 12:00] VITALS: BP 125/51
[2018-06-09] MEDS ORDERED: IRON325 M1 PO (12:05)
[2018-06-11] MEDS ORDERED: FERROUS SULFAT325 MG PO (08:51)
[2018-06-11] MEDS ORDERED: K-TAB20 MEQ PO (08:52)
[2018-06-11] MEDS ORDERED: LASIX20 MG PO (08:53)
[2018-06-11] MEDS ORDERED: ACETAZOLAMIDE250 MG PO (08:55)
== END 2018-06-09 15:11 | DRG 811 ==
LOC: ED 16:34 → EDHOLD 19:09 → 5E 19:09
PROVIDERS: Emergency Medicine; Student in an Organized Health Care Education/Training Program
DX: D50.9 Iron deficiency anemia, unspecified (principal); E43 Unspecified severe protein-calorie malnutrition; N39.0 Urinary tract infection, site not specified; I13.0 Hypertensive heart and chronic kidney disease with heart failure and stage 1 through stage 4 chronic kidney disease, or unspecified chronic kidney disease; I50.32 Chronic diastolic (congestive) heart failure; J96.11 Chronic respiratory failure with hypoxia; E87.0 Hyperosmolality and hypernatremia; B37.0 Candidal stomatitis; L89.152 Pressure ulcer of sacral region, stage 2; K44.9 Diaphragmatic hernia without obstruction or gangrene; F41.9 Anxiety disorder, unspecified; I25.10 Atherosclerotic heart disease of native coronary artery without angina pectoris; K21.9 Gastro-esophageal reflux disease without esophagitis; E78.00 Pure hypercholesterolemia, unspecified; M81.0 Age-related osteoporosis without current pathological fracture; E11.22 Type 2 diabetes mellitus with diabetic chronic kidney disease; E53.8 Deficiency of other specified B group vitamins; E87.6 Hypokalemia; R31.21 Asymptomatic microscopic hematuria; J41.0 Simple chronic bronchitis; F32.9 Major depressive disorder, single episode, unspecified; I89.0 Lymphedema, not elsewhere classified; I48.0 Paroxysmal atrial fibrillation; E55.9 Vitamin D deficiency, unspecified; M51.37 Other intervertebral disc degeneration, lumbosacral region; N18.3 Chronic kidney disease, stage 3 (moderate); Z79.01 Long term (current) use of anticoagulants; T83.511D Infection and inflammatory reaction due to indwelling urethral catheter, subsequent encounter; Z99.81 Dependence on supplemental oxygen; Z87.310 Personal history of (healed) osteoporosis fracture; Z86.718 Personal history of other venous thrombosis and embolism; Z85.3 Personal history of malignant neoplasm of breast; Z95.5 Presence of coronary angioplasty implant and graft; Z90.710 Acquired absence of both cervix and uterus; Z90.12 Acquired absence of left breast and nipple; Z98.51 Tubal ligation status; Z87.891 Personal history of nicotine dependence; Z80.1 Family history of malignant neoplasm of trachea, bronchus and lung; Z82.5 Family history of asthma and other chronic lower respiratory diseases; Z91.041 Radiographic dye allergy status; Z79.899 Other long term (current) drug therapy; Z68.22 Body mass index [BMI] 22.0-22.9, adult

== ENCOUNTER 2018-06-11 20:58 | Emergency (ER) | payer MEDICARE, MEDICAID ==
[~2018-06-11] VITALS: Ht 167.6 cm; Wt 81.6 kg
--- NOTE | ~2018-06-11 | EKG ---
[place], [place] ELECTROCARDIOGRAM REPORT NAME: CHRIS RAMEY UNIT #: [id number] ROOM: DOCTOR: EPIPHANY DRAFT REPORT BIRTHDATE: [birth year] [facility] Test Date: 2018-06-11 Test Time: 21:24:06 Pat Name: CHRIS RAMEY Department: Room: Gender: F Rda: EKG.HI : 1945 Requested By: JASON GU Order Number: [id number] Reading MD: Measurements Intervals [place] Rate: 58 P: 40 NM: 164 QRS: 8 QRSD: 100 T: 1 QT: 485 QTc: 477 Interpretive Statements Sinus rhythm Borderline low voltage, extremity leads Abnormal R-wave progression, early transition Compared to ECG 06/08/2018 17:05:51 No significant changes CM:EKGRPT:ELECTROCARDIOGRAM REPORT [address] [facility] D[facility] REPORT JASON GU MD
[2018-06-11 21:34] LABS: BASO % 0.3 % (0.0-1.0); EOS # 0.1 10*3/uL (0.0-0.4); EOS % 1.8 % (1.0-4.0); LYMPH # 2.1 10*3/uL (1.3-4.4); LYMPH % 29.1 % (27.0-41.0); MEAN CELL VOLUME 93.7 fl (81.0-99.0); MEAN CORPUSCULAR HGB 30.7 pg (27.0-31.0); MEAN CORPUSCULAR HGB CONC 32.8 g/dl (33.0-37.0); MEAN PLATELET VOLUME 10.4 fl (9.6-12.3); MONO # 0.5 10*3/uL (0.1-1.0); NEUT # 4.4 10*3/uL (2.3-7.9); NEUT % 60.4 % (47.0-73.0); NUCLEATED RED BLOOD CELL 0.3 % (0.0-0.0); PLATELET COUNT AUTOMATED 150 10*3/uL (130-400); RED BLOOD COUNT 3.81 10*6/uL (4.10-5.10); RED CELL DISTRI WIDTH 16.2 % (0-14.5); WHITE BLOOD COUNT 7.3 10*3/uL (4.8-10.8)
[2018-06-11 21:38] LABS: HEMATOCRIT 35.7 % (37.0-47.0); HEMOGLOBIN 11.7 g/dl (12.0-16.0)
[2018-06-11 21:51] LABS: ALBUMIN 2.5 gm/dl (3.1-4.5); ALKALINE PHOSPHATASE 42 U/L (45-117); BUN 30 mg/dl (7-24); CHLORIDE 123 mmol/L (98-107); CREATININE 1.85 mg/dL (0.55-1.02); POTASSIUM 3.5 mmol/L (3.5-5.1); SGOT/AST 20 IU/L (3-35); SGPT/ALT 10 U/L (12-78); SODIUM 143 mmol/L (136-145); TOTAL PROTEIN 5.6 gm/dL (6.4-8.2)
[2018-06-11 21:53] LABS: TROPONIN I < 0.015 ng/ml (<0.045)
== END 2018-06-11 23:44 | disposition home or self-care (01) ==
LOC: ED 20:58
PROVIDERS: Emergency Medicine Emergency Medical Services
DX: I89.0 Lymphedema, not elsewhere classified (principal); I12.9 Hypertensive chronic kidney disease with stage 1 through stage 4 chronic kidney disease, or unspecified chronic kidney disease; E11.22 Type 2 diabetes mellitus with diabetic chronic kidney disease; N18.9 Chronic kidney disease, unspecified; E78.00 Pure hypercholesterolemia, unspecified; K21.9 Gastro-esophageal reflux disease without esophagitis; J44.9 Chronic obstructive pulmonary disease, unspecified; I48.91 Unspecified atrial fibrillation; Z86.718 Personal history of other venous thrombosis and embolism; Z87.891 Personal history of nicotine dependence; Z85.3 Personal history of malignant neoplasm of breast; Z99.81 Dependence on supplemental oxygen; Z95.5 Presence of coronary angioplasty implant and graft; Z90.710 Acquired absence of both cervix and uterus; Z98.890 Other specified postprocedural states; Z98.51 Tubal ligation status; Z79.899 Other long term (current) drug therapy; Z91.041 Radiographic dye allergy status

== ENCOUNTER → 2018-06-11 | Outpatient (CLI) | payer MEDICARE, MEDICAID ==
[2018-06-11] VITALS (11 sets, daily range): BP systolic 97–135; BP diastolic 41–66
[~2018-06-11] MED LIST changes: +FERROUS SULFAT325 MG PO; +IRON325 M1 PO; +K-TAB20 MEQ PO; +KLOR-CON M2020 ME1 PO
== END | disposition home or self-care (01) ==
LOC: TRNFUSION 01:38
DX: N18.3 Chronic kidney disease, stage 3 (moderate) (principal); D64.9 Anemia, unspecified

== ENCOUNTER 2018-08-03 15:13 | Emergency (ER) | payer MEDICARE, MEDICAID ==
[~2018-08-03] VITALS: Ht 147.3 cm; Wt 49.0 kg
[2018-08-03 15:54] LABS: BASO % 0.2 % (0.0-1.0); HEMATOCRIT 32.9 % (37.0-47.0); HEMOGLOBIN 10.2 g/dl (12.0-16.0); LYMPH # 0.5 10*3/uL (1.3-4.4); LYMPH % 10.8 % (27.0-41.0); MEAN CELL VOLUME 97.9 fl (81.0-99.0); MEAN CORPUSCULAR HGB 30.4 pg (27.0-31.0); MEAN PLATELET VOLUME 10.4 fl (9.6-12.3); MONO # 0.3 10*3/uL (0.1-1.0); MONO % 5.8 % (3.0-9.0); NEUT # 3.6 10*3/uL (2.3-7.9); NEUT % 82.7 % (47.0-73.0); PLATELET COUNT AUTOMATED 176 10*3/uL (130-400); RED BLOOD COUNT 3.36 10*6/uL (4.10-5.10); RED CELL DISTRI WIDTH 15.1 % (0-14.5); WHITE BLOOD COUNT 4.3 10*3/uL (4.8-10.8)
[2018-08-03 16:09] LABS: ALBUMIN 2.1 gm/dl (3.1-4.5); CREATININE 1.46 mg/dL (0.55-1.02); POTASSIUM 4.5 mmol/L (3.5-5.1)
[2018-08-03] MEDS ORDERED: IMODIUM A-D2 M2 PO (18:47)
[2018-08-03] MEDS ORDERED: ZOFRAN4 MG PO (18:47)
== END 2018-08-03 19:32 | disposition home or self-care (01) ==
LOC: ED 15:13
PROVIDERS: Emergency Medicine
DX: R10.9 Unspecified abdominal pain (principal); R11.2 Nausea with vomiting, unspecified; R19.7 Diarrhea, unspecified; I48.91 Unspecified atrial fibrillation; I25.10 Atherosclerotic heart disease of native coronary artery without angina pectoris; J44.9 Chronic obstructive pulmonary disease, unspecified; K21.9 Gastro-esophageal reflux disease without esophagitis; E78.00 Pure hypercholesterolemia, unspecified; E11.22 Type 2 diabetes mellitus with diabetic chronic kidney disease; I13.0 Hypertensive heart and chronic kidney disease with heart failure and stage 1 through stage 4 chronic kidney disease, or unspecified chronic kidney disease; N18.3 Chronic kidney disease, stage 3 (moderate); I50.9 Heart failure, unspecified; Z91.041 Radiographic dye allergy status; Z79.899 Other long term (current) drug therapy; Z86.73 Personal history of transient ischemic attack (TIA), and cerebral infarction without residual deficits; Z87.891 Personal history of nicotine dependence

== ENCOUNTER 2019-05-20 16:26 | Emergency (ER) | payer OTHER, MEDICARE ==
[~2019-05-20] VITALS: Wt 46.3 kg
== END 2019-05-20 17:56 | disposition home or self-care (01) ==
LOC: ED 16:26
DX: S41.111A Laceration without foreign body of right upper arm, initial encounter (principal); S09.90XA Unspecified injury of head, initial encounter; I25.10 Atherosclerotic heart disease of native coronary artery without angina pectoris; K21.9 Gastro-esophageal reflux disease without esophagitis; I25.2 Old myocardial infarction; J44.9 Chronic obstructive pulmonary disease, unspecified; I12.0 Hypertensive chronic kidney disease with stage 5 chronic kidney disease or end stage renal disease; N18.6 End stage renal disease; Z79.899 Other long term (current) drug therapy; Z87.891 Personal history of nicotine dependence; Z91.041 Radiographic dye allergy status; W05.0XXA Fall from non-moving wheelchair, initial encounter; Y93.89 Activity, other specified; Y92.128 Other place in nursing home as the place of occurrence of the external cause

== ENCOUNTER → 2019-08-03 | Day surgery (SDC) | payer OTHER, MEDICARE ==
[~2019-08-03] MED LIST changes: +MUCINEX FAST M PO
[2019-08-03 10:01] VITALS: BP 132/81
[2019-08-03 12:51] VITALS: BP 106/55
[2019-08-03 13:06] VITALS: BP 102/79
[2019-08-03 13:21] VITALS: BP 168/79
== END | disposition home or self-care (01) ==
LOC: SDC 07-30 10:15
DX: T82.514A Breakdown (mechanical) of infusion catheter, initial encounter (principal); I89.0 Lymphedema, not elsewhere classified; I25.10 Atherosclerotic heart disease of native coronary artery without angina pectoris; I48.91 Unspecified atrial fibrillation; J44.9 Chronic obstructive pulmonary disease, unspecified; K21.9 Gastro-esophageal reflux disease without esophagitis; F41.9 Anxiety disorder, unspecified; F32.9 Major depressive disorder, single episode, unspecified; I25.2 Old myocardial infarction; Z85.3 Personal history of malignant neoplasm of breast; Z79.01 Long term (current) use of anticoagulants; Z79.899 Other long term (current) drug therapy; Y83.8 Other surgical procedures as the cause of abnormal reaction of the patient, or of later complication, without mention of misadventure at the time of the procedure; Y92.89 Other specified places as the place of occurrence of the external cause; Z83.3 Family history of diabetes mellitus; Z82.5 Family history of asthma and other chronic lower respiratory diseases

== ENCOUNTER 2019-09-11 10:18 | Inpatient (IN) | payer OTHER, MEDICARE ==
[~2019-09-11] VITALS: Ht 144.8 cm; Wt 44.6 kg
[2019-09-11 10:23] VITALS: BP 174/72
--- NOTE | 2019-09-11 10:58 | NUR ---
PT HAS MULTIPLE BRUISING RIGHT UPPER ARM WITH DATED DRESSING OVER WOUND FROM ORCHARDS PT ALSO HAS NOTED EDEMA LEFT ARM WITH DATED DRESSING OVER WOUND PT HAS LEFT ARM RESTRICTION LEFT ARM LILMB ALERT BAND APPLIED TO LEFT WRIST
[2019-09-11 11:20] LABS: BASO % 0.2 % (0.0-1.0); EOS # 0.5 10*3/uL (0.0-0.4); EOS % 5.2 % (1.0-4.0); HEMATOCRIT 32.9 % (37.0-47.0); LYMPH # 1.9 10*3/uL (1.3-4.4); LYMPH % 21.9 % (27.0-41.0); MEAN CELL VOLUME 97.3 fl (81.0-99.0); MEAN CORPUSCULAR HGB 29.6 pg (27.0-31.0); MEAN CORPUSCULAR HGB CONC 30.4 g/dl (33.0-37.0); MEAN PLATELET VOLUME 11.5 fl (9.6-12.3); MONO # 0.7 10*3/uL (0.1-1.0); MONO % 7.5 % (3.0-9.0); NEUT # 5.7 10*3/uL (2.3-7.9); NEUT % 65.1 % (47.0-73.0); PLATELET COUNT AUTOMATED 201 10*3/uL (130-400); RED BLOOD COUNT 3.38 10*6/uL (4.10-5.10); WHITE BLOOD COUNT 8.8 10*3/uL (4.8-10.8)
--- NOTE | 2019-09-11 11:22 | NUR ---
PT GIVEN WARM BLANKET PT HAS NO REQUESTS AT THIS TIME RESP EASY NO SIGN OF DISTRESS BED IN LOWEST POSITION BED RAILS UP X 2 CALL LIGHT IN REACH
--- NOTE | 2019-09-11 11:24 | NUR ---
FAMILY AT BEDSIDE
[2019-09-11 11:26] LABS: ALBUMIN 2.3 gm/dl (3.1-4.5); ALKALINE PHOSPHATASE 113 U/L (45-117); BUN 21 mg/dl (7-24); CHLORIDE 107 mmol/L (98-107); CREATININE 1.74 mg/dL (0.55-1.02); POTASSIUM 5.3 mmol/L (3.5-5.1); SGOT/AST 33 IU/L (3-35); SGPT/ALT 19 U/L (12-78); SODIUM 142 mmol/L (136-145)
[2019-09-11 11:30] LABS: TROPONIN I < 0.015 ng/ml (<0.045)
--- NOTE | 2019-09-11 11:39 | NUR ---
PT HAS ONGOING ACTIVE ORDER FOR WOUND MANAGEMENT SERVICE WOUND DRESSING CLEAN INTACT AND DATED
[2019-09-11 12:02] LABS: BILIRUBIN NEGATIVE (NEGATIVE); BLOOD 3+ (NEGATIVE); CLARITY CLOUDY (CLEAR); COLOR YELLOW (YELLOW); GLUCOSE NEGATIVE (NEGATIVE); KETONE NEGATIVE (NEGATIVE); PH 8.5 (5.0-9.0)
[2019-09-11 12:03] LABS: LEUKO ESTERASE 3+ (NEGATIVE); NITRITE NEGATIVE (NEGATIVE); UROBILINOGEN 0.2 E.U./dl (0.2-1.0)
[2019-09-11 12:14] LABS: BACTERIA 4+; EPITHELIAL CELLS 30-40; RBC TNTC rbc/hpf (0-2); WBC 51-100 wbc/hpf (0-5)
[2019-09-11 13:33] VITALS: BP 154/66
[2019-09-11 13:40] VITALS: BP 145/77
--- NOTE | 2019-09-11 13:40 | NUR ---
Time: 0 A 74 year old FEMALE admitted to 5E under services of ROULA HEATH DO. Pt. arrived via stretcher from ER. Chief complaint: DYSPNEA AND PAIN. PERLA LEDESMA
[2019-09-11] MEDS ORDERED: PAIN & FEVER R325 MG PO (15:44)
[2019-09-11] MEDS ORDERED: Ipratropium Brom3 ML INH (15:48)
[2019-09-11] MEDS ORDERED: FAMOTIDINE20 M1 PO (15:53)
[2019-09-11] MEDS ORDERED: HYDROXYZINE PAM25 M1 PO (15:56)
[2019-09-11] MEDS ORDERED: ONDANSETRON HYDR4 M1 PO (15:56)
--- NOTE | 2019-09-11 16:06 | NUR ---
DR. CANADA ADVISED OF COMPLETED MED REC.
--- NOTE | 2019-09-11 18:11 | NUR ---
IV SITE TO RAC PAINFUL AND LEAKING, DISCONTINUED THE IV SITE. AFTER MULTIPLE ATTEMPTS AT RESTART BY MULTIPLE RN'S, NO IV SITE OBTAINED. DR. CANADA NOTIFIED; PER DR. CANADA, DR. WATTERS SHOULD BE CALLED AFTER 7PM RE: IV RESTART.
[2019-09-11 20:00] VITALS: BP 136/71
[2019-09-12] VITALS: BP 121/68
--- NOTE | 2019-09-12 02:57 | NUR ---
PATIENT RESTING IN BED WITH EYES CLOSED. NO SIGNS OR SYMPTOMS OF DISTRESS NOTED. RESPIRATIONS REGULAR AND NON-LABORED ON O2 AT 3L N/C. AROUSES TO VERBAL STIMULI. DENIES COMPLAINTS OF PAIN OR DISCOMFORT. WILL CONTINUE TO MONITOR. CALL LIGHT IN REACH.
[2019-09-12 06:15] LABS: BASO % 0.3 % (0.0-1.0); EOS # 0.5 10*3/uL (0.0-0.4); EOS % 7.8 % (1.0-4.0); HEMATOCRIT 30.2 % (37.0-47.0); HEMOGLOBIN 9.2 g/dl (12.0-16.0); LYMPH # 1.7 10*3/uL (1.3-4.4); LYMPH % 26.6 % (27.0-41.0); MEAN CELL VOLUME 99.3 fl (81.0-99.0); MEAN CORPUSCULAR HGB 30.3 pg (27.0-31.0); MEAN CORPUSCULAR HGB CONC 30.5 g/dl (33.0-37.0); MEAN PLATELET VOLUME 11.4 fl (9.6-12.3); MONO # 0.6 10*3/uL (0.1-1.0); MONO % 8.5 % (3.0-9.0); NEUT # 3.7 10*3/uL (2.3-7.9); NEUT % 56.5 % (47.0-73.0); PLATELET COUNT AUTOMATED 191 10*3/uL (130-400); RED BLOOD COUNT 3.04 10*6/uL (4.10-5.10); RED CELL DISTRI WIDTH 15.3 % (0-14.5); WHITE BLOOD COUNT 6.5 10*3/uL (4.8-10.8)
[2019-09-12 06:34] LABS: CREATININE 1.68 mg/dL (0.55-1.02); PHOSPHOROUS 3.3 mg/dL (2.5-4.9); TOTAL PROTEIN 5.4 gm/dL (6.4-8.2)
[2019-09-12 06:39] LABS: THYROID STIM HORMONE (HS) 1.72 uIU/ml (0.358-4.75)
[2019-09-12 07:10] LABS: POTASSIUM 4.3 mmol/L (3.5-5.1)
[2019-09-12 08:00] VITALS: BP 134/42
[2019-09-12 12:00] VITALS: BP 115/75
--- NOTE | 2019-09-12 15:04 | NUR ---
24 HR chart check completed.
[2019-09-12 16:00] VITALS: BP 112/52
--- NOTE | 2019-09-12 16:00 | NUR ---
RESTING IN BED. RESPIRATIONS EASY. LUNGS DIMINISHED. PULSE OX 99% 2L. CLAIMS INFREQ COUGH. TEDS/HEEL PROTECTORS IN PLACE. CALL LIGHT WITHIN REACH. NO VOICED COMPLAINTS. BED ALARM MAINTAINED FOR SAFETY
[2019-09-12 20:00] VITALS: BP 130/59
--- NOTE | 2019-09-12 20:07 | NUR ---
PATIENT RESTING IN BED WATCHING TV. DENIES COMPLAINTS OF PAIN OR DISCOMFORT AT THIS TIME. RESPIRATIONS REGULAR AND NON-LABORED ON 2L N/C. HEEL PROTECTORS AND TUBI DATA BASE ADMINISTRATOR TO BILATERAL ARMS INTACT. BED ALARM ON. STATED IF SHE COULD STAY IN THAT SAME POSITION ALL NIGHT LONG SHE WOULD BE FINE. WILL CONTINUE TO MONITOR. CALL LIGHT IN REACH.
[2019-09-13] VITALS: BP 110/61
--- NOTE | 2019-09-13 07:30 | NUR ---
VITAL SIGNS ARE STABLE AT THIS TIME. THE PATIENT IS RESTING IN HER BED WATCHING TELEVISION. PATIENT IS A&OX3 AND GAYLE. SHE IS PLEASANT, COOPERATIVE AND APPROPRIATE DURING THE EXAMINATION. HEART SOUNDS ARE NORMAL. LUNG SOUDNS ARE CLEAR THOUGH SLIGHTLY DIMINISHED THROUGHOUT. PER PATIENT SHE STATES THAT SHE OCCASIONALLY HAS A PRODUCTIVE COUGH WITH CLEAR SPUTUM. ABDOMEN IS SOFT, NON TENDER AND NON DISTENDED. BSX4. SKIN IS WARM, PINK AND DRY. THERE IS A TUBI HOST/HOSTESS HEAD INPLACE TO HER LEFT ARM. DENIES TO HAVE IT APPLIED TO HER RIGHT. PATIENT DOES HAVE AN ECCYMOTIC AREA BELOW HER IV SITE AND TO HER RIGHT HAND. HER SKIN TURGOR IS GOOD AND NON TENTING. BILAT SCARLETT HOSE APPLIED. DENIED TO HAVE HEEL PROTECTORS PLACED ON. CAPILLARY REFILL IS LESS THAN 3 SECONDS. 22G IV IS INTACT TO THE RIGHT UPPER ARM. PATIENT CURRENTLY HAS NO COMPLAINTS. WILL CONTINUE TO MONITOR. BED ALARM IS INTACT. DARA DOSHI SPNRCC
[2019-09-13 08:00] VITALS: BP 116/76
--- NOTE | 2019-09-13 08:00 | NUR ---
PT RESTING IN BED WITH HOB ELEVATED. PT RECEIVING BREATHING TX. ECCYMOTIC ARMS. PT HAS BURNING AND ITCHING AFTER URINATION PER PT. LUNGS DIMINISHED T/O. TEDS ON. STUDENT NURSE WITH PT TODAY. CALL LIGHT IN REACH.
--- NOTE | 2019-09-13 08:03 | NUR ---
Occupational therapy orders and nursing screen received. Will follow up with patient. Thank you. Sallie Chopra, OTR/L
--- NOTE | 2019-09-13 08:09 | NUR ---
PHYSICAL THERAPY Screen and PT eval received will follow thank you Steffany Ge PT
[2019-09-13 09:34] VITALS: BP 136/84
--- NOTE | 2019-09-13 09:44 | NUR ---
PATIENT STATES THAT SHE WANTED PIZZA FOR BREAKFAST. I CONTACTED THE KITCHEN AND THEY STATED THAT "THE PIZZA CRUST WILL NOT BE READY UNTIL LUNCH". THE PATIENT WAS ORDERED TOAST AND REFUSED TO EAT IT. DARA RUBY
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
--- NOTE | 2019-09-13 10:06 | NUR ---
FAMILY IS IN TO VISIT THE PATIENT AT THIS TIME. PATIENT CONTINUES TO REST. BED ALARM INTACT. NO COMPLAINTS. DARA FELIXCC
--- NOTE | 2019-09-13 10:32 | NUR ---
ALEXANDER ADHIKARI IN TO SEE PATIENT. SEE NEW ORDERS. DARA DOSHI SPNRCC
--- NOTE | 2019-09-13 11:30 | NUR ---
THE PATIENT IS RESTING IN BED IN A POSITION OF COMFORT AT THIS TIME. HER LUNCH HAS BEEN ORDERED. SHE STATES THAT SHE DOES NOT NEED ANYTHING AT THIS TIME. WILL CONTINUE TO MONITOR PATIENT. BED ALARM INTACT. DARA DOSHI SPJESSICACC
--- NOTE | 2019-09-13 11:30 | NUR ---
PHYSICAL THERAPY Attempted to see pt for evaluation pt declining therapy at this time as not feeling well nauseated and with abdominal pain, will follow Steffany Ge PT
--- NOTE | 2019-09-13 11:45 | NUR ---
WOUND CARE RECOMMENDATIONS LEFT WITH NURSE CARING FOR PATIENT.
--- NOTE | 2019-09-13 11:51 | NUR ---
PATIENT RECEIVED ZOFRAN 4MG IVP BY HELEN DYKES RN FOR COMPLAINTS OF NAUSEA AND EPISODES OF DRY HEAVING. WILL CONTINUE TO MONITOR PATIENT. DARA RUBY
[2019-09-13 12:00] VITALS: BP 122/86
--- NOTE | 2019-09-13 12:24 | NUR ---
PATIENT STATES THAT THE ZOFRAN HAS BEEN EFFECTIVE. NO COMPLAINTS OF NAUSEA AT THIS TIME. SHE HAS RECEIVED HER LUNCH AND STATES THAT SHE IS GOING TO ATTEMPT TO EAT TO SEE IF THAT MAKES HER FEEL BETTER. BED ALARM INTACT. WILL CONTINUE TO MONITOR PATIENT. DARA DOSHI SPNRCC
--- NOTE | 2019-09-13 12:54 | NUR ---
Patient updated clinicals faxed to [facility] for review. 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
--- NOTE | 2019-09-13 13:06 | NUR ---
RESPIRATORY IN ROOM WITH PATIENT ADMINISTERING HER BREATHING TREATMENT. PATIENT CONTINUES TO REST IN HER BED WATCHING TELEVISION. STATES THAT SHE "IS NOT VERY HUNGRY". BODY ALARM INTACT. DARA DOSHI SPJESSICACC
--- NOTE | 2019-09-13 13:10 | NUR ---
ALEXANDER ADHIKARI MADE AWARE PT C/O BURNING AFTER URINATION AND ITCHING.
--- NOTE | 2019-09-13 13:52 | NUR ---
PT IS PENITENTIARY CARE AT [facility] AND WILL RETURN WHEN MEDICALLY STABLE. WILL CONTINUE TO FOLLOW.
--- NOTE | 2019-09-13 14:00 | NUR ---
PT REPOSITIONED AND CLEANED UP FOR LOOSE STOOL. NO C/O AT THIS TIME. CALL LIGHT IN REACH.
[2019-09-13 15:31] LABS: VITAMIN D, 25-HYDROXY 63.3 ng/mL (30-100)
[2019-09-13 16:00] VITALS: BP 120/80
[2019-09-13 20:00] VITALS: BP 102/54
--- NOTE | 2019-09-13 20:00 | NUR ---
RESTING IN BED. RESPIRATIONS EASY. LUNGS DIMINISHED. PULSE OX 92% RA. INFREQUENT COUGH. TEDS IN PLACE. CALL LIGHT WITHIN REACH. NO VOICED COMPLAINTS. BED ALARM MAINTAINED FOR SAFETY
--- NOTE | 2019-09-13 20:12 | NUR ---
24 HR chart check completed.
--- NOTE | 2019-09-13 20:52 | NUR ---
MEDICATED WITH TYLENOL PER PRN ORDER FOR COMPLAINTS OF GENERALIZED ACHES AND PAIN. CALL LIGHT WITHIN REACH. WILL MONITOR FOE EFFECTIVENESS
--- NOTE | 2019-09-13 23:00 | NUR ---
MEDS APPEAR EFFECTIVE. SLEEPING. RESPIRATIONS EASY. CALL LIGHT WITHIN REACH. BED ALARM MAINTAINED FOR SAFETY
[2019-09-14] VITALS: BP 90/44
--- NOTE | 2019-09-14 00:30 | NUR ---
SLEEPING. NO DISTRESS NOTED. RESPIRATIONS EASY. VSS. CALL LIGHT WITHIN REACH. BED ALARM MAINTAINED
--- NOTE | 2019-09-14 06:00 | NUR ---
RESTED TROUGHOUT NIGHT WTH NO ACUTE DISTRESS NOTED. RESPIRATIONS EASY. CALL LIGHT WITHIN REACH. NO VOICED COMPLAINTS THIS SHIFT
[2019-09-14 08:00] VITALS: BP 124/62
--- NOTE | 2019-09-14 09:00 | NUR ---
AWAKE, RESTING IN BED. RESPIRATIONS EASY. LUNGS DIMINISHED. PULSE OX 94% RA. CALL LIGH WITHIN REACH. NO VOICED COMPLAINTS. BED ALARM MAINTAINED FOR SAFETY
--- NOTE | 2019-09-14 11:57 | NUR ---
PT IS ASSISTED CARE AT [facility] AND CAN RETURN WHEN MEDICALLY STABLE.
[2019-09-14 12:00] VITALS: BP 122/60
--- NOTE | 2019-09-14 12:00 | NUR ---
RESTING IN BED. RESP-EASY AND REGULAR. LEFT ARM UP ON PILLOW. ECCYMOTIC AREAS ON BOTH ARMS. NO C/O AT THIS TIME. REPOSITIONED IN BED. CALL LIGHT IN REACH. BED ALARM ON.
--- NOTE | 2019-09-14 14:25 | NUR ---
PHYSICAL THERAPY Lanie attempted and started subjective information however then staff in to take chest xray and then pt's lunch came. Pt stating she wanted to eat first before trying any activity. Will follow Steffany Ge PT
[2019-09-14 16:00] VITALS: BP 136/69
--- NOTE | 2019-09-14 16:20 | NUR ---
PT RESTING IN BED, REPOSITIONED FOR COMFORT. RESP-EASY AND REGULAR. NO C/O AT THIS TIME. CALL LIGHT IN REACH. SEE SHIFT ASSESSMENT.
[2019-09-14 20:00] VITALS: BP 115/60
[2019-09-15] VITALS: BP 123/61
--- NOTE | 2019-09-15 04:01 | NUR ---
Upon discharge recommend patient to follow up for wound care in outpatient setting continue current wound care orders at discharging facility.
--- NOTE | 2019-09-15 07:30 | NUR ---
VITAL SIGNS ARE STABLE AT THIS TIME. THE PATIENT IS RESTING IN HER BED WITH HER EYES CLOSED BUT EASILY AROUSABLE. SHE IS A&Ox3. GAYLE. FLAT AFFECT. EQUAL BILATERAL MANAGER HVAC. PATIENT IS PLEASANT AND COOPERATIVE. HER HEART SOUNDS ARE NORMAL. LUNG SOUNDS ARE DIMINISHED BUT CLEAR THROUGHOUT. PATIENT STATES THAT SHE HAS A PRODUCTIVE COUGH AT TIMES WITH CLEAR SPUTUM. ABDOMEN IS SOFT, NON TENDER AND NON DISTENDED. NORMOACTIVE BOWEL SOUNDS X4. THE PATIENTS SKIN IS WARM, PINK AND DRY. TURGOR IS GOOD AND NON TENTING. CAPILLARY REFILL IS LESS THAN 3 SECONDS. 22G IV IS INTACT TO THE RIGHT UPPERARM, IT IS PATENT. THERE ARE ALSO MULTIPLE ECCYMOTIC AREAS TO THE RIGHT ARM. THERE IS EDEMA ASSOCIATED WITH LYMPHEDEMA FROM A PREVIOUS LEFT SIDED MASTECTOMY. THE PATIENT HAS NO COMPLAINTS AT THIS TIME. DENIES ANY PAIN. BED ALARM IS INTACT. CALL LIGHT WITHIN REACH. DARA DOSHI [facility]
--- NOTE | 2019-09-15 07:45 | NUR ---
RESPIRATORY IS IN ROOM WITH PATIENT. SHE IS RECEIVING A BREATHING TREATMENT. NO COMPLAINTS AT THIS TIME. RESTING. BED ALARM INTACT. DARA DOSHI SPJESSICACC
[2019-09-15 08:00] VITALS: BP 124/74
[2019-09-15 08:50] VITALS: BP 122/76
--- NOTE | 2019-09-15 09:00 | NUR ---
THE PATIENT HAS RECEIVED HER BREAKFAST. ASSISTED WITH THE SET UP AND PREPERATION. CALL LIGHT WITHIN REACH. NO COMPLAINTS. WILL CONTINUE TO ASSESS. DARA RUBY
--- NOTE | 2019-09-15 10:00 | NUR ---
ALEXANDER ADHIKARI IN TO SEE PATIENT. SEE NEW ORDERS. DARA DOSHI SPNRCC
--- NOTE | 2019-09-15 10:30 | NUR ---
PATIENT IS RESTING IN BED WATCHING TELEVISION. SHE HAS NO COMPLAINTS. CALL LIGHT WITHIN REACH. BED ALARM INTACT. WILL CONTINUE TO MONITOR PATIENT. DARA RUBY
[2019-09-15] MEDS ORDERED: OMNICEF300 MG PO (11:27)
[2019-09-15] MEDS ORDERED: ZITHROMAX500 MG PO (11:27)
--- NOTE | 2019-09-15 12:14 | NUR ---
Patient is discharged to return to the [facility] via [facility] at 1PM. NH, nursing/dining car steward and daughter Yulissa all notified.
--- NOTE | 2019-09-15 12:26 | NUR ---
REPORT WAS GIVEN TO MARIO ARMSTRONG AT [facility]. DARA DOSHI SPJESSICACC
--- NOTE | 2019-09-15 13:12 | NUR ---
Discharge instructions reviewed with patient/family. Patient receptive and verbalizes understanding. Follow-up care arranged. Written instructions given to patient/family.DISCHARGED TO [facility] UNDER THE CARE OF [facility]. MARIO HERNANDEZ
--- NOTE | 2019-09-15 14:54 | NUR ---
PT IS RETURNING TO [facility].
[2019-10-03] MEDS ORDERED: ROZEREM8 MG PO (17:33)
[2019-10-07] MEDS ORDERED: LOPRESSOR25 MG PO (09:44)
[2019-10-07] MEDS ORDERED: AMINOPHYLLIN200 MG PO (09:44)
[2019-10-07] MEDS ORDERED: PHARMASSURE FO0.4 MG PO (09:44)
== END 2019-09-15 13:12 | disposition other institution (70) | DRG 177 ==
LOC: ED 10:18 → EDHOLD 12:53 → 5E 12:53
PROVIDERS: Emergency Medicine; Registered Nurse; ADMIT Internal Medicine
DX: J15.6 Pneumonia due to other Gram-negative bacteria (principal); E43 Unspecified severe protein-calorie malnutrition; J96.10 Chronic respiratory failure, unspecified whether with hypoxia or hypercapnia; N39.0 Urinary tract infection, site not specified; D68.69 Other thrombophilia; I13.0 Hypertensive heart and chronic kidney disease with heart failure and stage 1 through stage 4 chronic kidney disease, or unspecified chronic kidney disease; Z68.1 Body mass index [BMI] 19.9 or less, adult; N18.3 Chronic kidney disease, stage 3 (moderate); I25.118 Atherosclerotic heart disease of native coronary artery with other forms of angina pectoris; F32.9 Major depressive disorder, single episode, unspecified; F41.9 Anxiety disorder, unspecified; M51.37 Other intervertebral disc degeneration, lumbosacral region; B96.20 Unspecified Escherichia coli [E. coli] as the cause of diseases classified elsewhere; Z66 Do not resuscitate; Z51.5 Encounter for palliative care; R59.0 Localized enlarged lymph nodes; I48.91 Unspecified atrial fibrillation; E87.5 Hyperkalemia; K21.9 Gastro-esophageal reflux disease without esophagitis; M81.0 Age-related osteoporosis without current pathological fracture; E78.00 Pure hypercholesterolemia, unspecified; I50.9 Heart failure, unspecified; Z88.8 Allergy status to other drugs, medicaments and biological substances; Z91.041 Radiographic dye allergy status; Z88.1 Allergy status to other antibiotic agents; Z86.718 Personal history of other venous thrombosis and embolism; Z85.3 Personal history of malignant neoplasm of breast; Z87.440 Personal history of urinary (tract) infections; Z95.5 Presence of coronary angioplasty implant and graft; Z90.710 Acquired absence of both cervix and uterus; Z98.51 Tubal ligation status; Z90.12 Acquired absence of left breast and nipple; Z87.891 Personal history of nicotine dependence; Z82.5 Family history of asthma and other chronic lower respiratory diseases; Z81.2 Family history of tobacco abuse and dependence; Z80.1 Family history of malignant neoplasm of trachea, bronchus and lung; Z83.3 Family history of diabetes mellitus; Z82.49 Family history of ischemic heart disease and other diseases of the circulatory system; Z79.899 Other long term (current) drug therapy

== ENCOUNTER 2019-09-23 20:35 | Inpatient (IN) | payer OTHER, MEDICARE ==
[~2019-09-23] VITALS: Ht 147.3 cm
[~2019-09-23 20:35] MED LIST changes: +FAMOTIDINE20 M1 PO; +HYDROXYZINE PAM25 M1 PO; +Ipratropium Brom3 ML INH; +OMNICEF300 MG PO; +ONDANSETRON HYDR4 M1 PO; +PAIN & FEVER R325 MG PO; +ZITHROMAX500 MG PO
[2019-09-23] MEDS ORDERED: SEROQUEL25 MG PO (21:38)
[2019-09-23 21:40] VITALS: BP 135/76
[2019-09-23 23:03] VITALS: BP 135/76
[2019-09-24 06:39] LABS: BASO % 0.4 % (0.0-1.0); EOS # 0.3 10*3/uL (0.0-0.4); EOS % 5.9 % (1.0-4.0); HEMATOCRIT 26.9 % (37.0-47.0); HEMOGLOBIN 8.2 g/dl (12.0-16.0); LYMPH # 1.2 10*3/uL (1.3-4.4); LYMPH % 22.8 % (27.0-41.0); MEAN CELL VOLUME 98.2 fl (81.0-99.0); MEAN CORPUSCULAR HGB 29.9 pg (27.0-31.0); MEAN CORPUSCULAR HGB CONC 30.5 g/dl (33.0-37.0); MEAN PLATELET VOLUME 11.1 fl (9.6-12.3); MONO # 0.5 10*3/uL (0.1-1.0); MONO % 8.7 % (3.0-9.0); NEUT # 3.3 10*3/uL (2.3-7.9); NEUT % 61.8 % (47.0-73.0); PLATELET COUNT AUTOMATED 165 10*3/uL (130-400); RED BLOOD COUNT 2.74 10*6/uL (4.10-5.10); RED CELL DISTRI WIDTH 15.3 % (0-14.5); WHITE BLOOD COUNT 5.4 10*3/uL (4.8-10.8)
[2019-09-24 06:55] LABS: ALBUMIN 1.9 gm/dl (3.1-4.5); CREATININE 1.49 mg/dL (0.55-1.02); TOTAL PROTEIN 5.1 gm/dL (6.4-8.2)
[2019-09-24 07:04] LABS: THYROID STIM HORMONE (HS) 1.42 uIU/ml (0.358-4.75)
[2019-09-24 07:49] VITALS: BP 133/72
[2019-09-24 08:01] LABS: VITAMIN D, 25-HYDROXY 69.1 ng/mL (30-100)
[2019-09-24 20:00] VITALS: BP 142/66
[2019-09-25 07:30] VITALS: BP 138/70
[2019-09-25 18:21] LABS: BILIRUBIN NEGATIVE (NEGATIVE); BLOOD 3+ (NEGATIVE); CLARITY TURBID (CLEAR); COLOR YELLOW (YELLOW); GLUCOSE NEGATIVE (NEGATIVE); KETONE 1+ (NEGATIVE); LEUKO ESTERASE TRACE (NEGATIVE); NITRITE NEGATIVE (NEGATIVE); PH 6.5 (5.0-9.0); UROBILINOGEN 0.2 E.U./dl (0.2-1.0)
[2019-09-25 18:27] LABS: BACTERIA 2+; MUCOUS TRACE; RBC TNTC rbc/hpf (0-2)
[2019-09-25 20:00] VITALS: BP 107/70
[2019-09-26 08:00] VITALS: BP 103/73
[2019-09-26 20:00] VITALS: BP 112/73
[2019-09-27 07:44] VITALS: BP 90/51
[2019-09-27 19:55] VITALS: BP 120/73
[2019-09-28 08:00] VITALS: BP 118/80
[2019-09-28 19:49] VITALS: BP 100/60
[2019-09-29 08:00] VITALS: BP 117/64
[2019-09-29 20:00] VITALS: BP 114/62
[2019-09-30 08:00] VITALS: BP 110/64
[2019-09-30] MEDS ORDERED: EXELON13.3 MG/21 T (10:16)
[2019-09-30] MEDS ORDERED: RISPERIDONE1 MG PO (10:16)
[2019-09-30] MEDS ORDERED: ROZEREM8 MG PO (10:16)
[2019-09-30] MEDS ORDERED: RISPERIDONE0.5 MG PO (10:16)
[2019-09-30] MEDS ORDERED: MEMANTINE HCL10 MG PO (10:16)
[2019-10-03] MEDS ORDERED: ROZEREM8 MG PO (17:33)
[2019-10-07] MEDS ORDERED: PHARMASSURE FO0.4 MG PO (09:44)
[2019-10-07] MEDS ORDERED: LOPRESSOR25 MG PO (09:44)
[2019-10-07] MEDS ORDERED: AMINOPHYLLIN200 MG PO (09:44)
== END 2019-09-30 12:12 | disposition other institution (70) | DRG 883 ==
LOC: 3N 20:35
PROVIDERS: ADMIT Psychiatry & Neurology Psychiatry
DX: F63.81 Intermittent explosive disorder (principal); J96.10 Chronic respiratory failure, unspecified whether with hypoxia or hypercapnia; I13.0 Hypertensive heart and chronic kidney disease with heart failure and stage 1 through stage 4 chronic kidney disease, or unspecified chronic kidney disease; F33.2 Major depressive disorder, recurrent severe without psychotic features; D68.69 Other thrombophilia; M51.37 Other intervertebral disc degeneration, lumbosacral region; N18.3 Chronic kidney disease, stage 3 (moderate); I50.9 Heart failure, unspecified; D64.9 Anemia, unspecified; G30.9 Alzheimer's disease, unspecified; F02.80 Dementia in other diseases classified elsewhere, unspecified severity, without behavioral disturbance, psychotic disturbance, mood disturbance, and anxiety; I48.91 Unspecified atrial fibrillation; I25.10 Atherosclerotic heart disease of native coronary artery without angina pectoris; E78.00 Pure hypercholesterolemia, unspecified; K21.9 Gastro-esophageal reflux disease without esophagitis; E11.22 Type 2 diabetes mellitus with diabetic chronic kidney disease; Z99.81 Dependence on supplemental oxygen; Z86.718 Personal history of other venous thrombosis and embolism; Z85.3 Personal history of malignant neoplasm of breast; Z95.5 Presence of coronary angioplasty implant and graft; Z90.710 Acquired absence of both cervix and uterus; Z98.51 Tubal ligation status; Z80.1 Family history of malignant neoplasm of trachea, bronchus and lung; Z83.6 Family history of other diseases of the respiratory system; Z81.8 Family history of other mental and behavioral disorders; Z88.1 Allergy status to other antibiotic agents; Z88.8 Allergy status to other drugs, medicaments and biological substances; F41.1 Generalized anxiety disorder; M81.0 Age-related osteoporosis without current pathological fracture; E55.9 Vitamin D deficiency, unspecified; E53.8 Deficiency of other specified B group vitamins; E61.1 Iron deficiency; I89.0 Lymphedema, not elsewhere classified